=== PATIENT | male | born 1950 | race Caucasian/White ===

== ENCOUNTER → 2019-05-09 08:43 | Outpatient (CLI) | payer MEDICARE, OTHER, SELFPAY ==
[2019-05-09 08:51] LABS: Bacteria Urine None Seen; RBC Urine None Seen (0-5/HPF)
[2019-05-09 09:26] LABS: Add Manual Diff / Slide Review NO; Basophils Absolute Auto 100 /uL (0-100); Basophils Percent Auto 1.1 % (0-2); Eosinophils Absolute Auto 200 /uL (0-450); Eosinophils Percent Auto 2.9 % (2-4); Hematocrit 49.6 % (41-53); Hemoglobin 16.9 g/dL (13.5-17.5); Lymphocytes Absolute Auto 1500 /uL (1100-4500); Lymphocytes Percent Auto 27.4 % (25-40); Mean Corpuscular Hemoglobin 32.2 PG (26-34); Mean Corpuscular Volume 94.7 fL (80-100); Monocytes Absolute Auto 700 /uL (0-900); Monocytes Percent Auto 12.9 % (3-14); Neutrophils Absolute Auto 3100 /uL (1500-7000); Neutrophils Percent Auto 55.7 % (50-75); Platelet Count 252 X10^3/uL (150-400); Red Blood Cell Count 5.24 X10^6/uL (4.5-5.9); Red Cell Distribution Width 12.9 % (11.6-14.8); White Blood Cell Count 5.5 X10^3/uL (4.5-11.0)
[2019-05-09 10:05] LABS: Alanine Aminotransferase 8 IU/L (21-72); Albumin Globulin Ratio 1.3 (1.0-2.8); Alkaline Phosphatase 90 U/L (38-126); Aspartate Aminotransferase 21 IU/L (17-59); BUN Creatinine Ratio 21.1 (6-22); Bilirubin Total 0.5 mg/dL (0.2-1.3); Blood Urea Nitrogen 19 mg/dL (9-20); Calcium 9.2 mg/dL (8.4-10.2); Carbon Dioxide 28 mmol/L (22-32); Chloride 104 mmol/L (98-107); Cholesterol 209 mg/dL (140-199); Estimated Glomerular Filt Rate > 60.0 mL/min (>60); Globulin 3.2 g/dL (1.7-4.1); Glucose 109 mg/dL (80-110); HDL Cholesterol 52 mg/dL (40-60); HEMOLYSIS < 15 (0-50); LDL Cholesterol Calculated 139 mg/dL (<100); Potassium 4.9 mmol/L (3.4-5.1); Sodium 139 mmol/L (137-145); Total Protein 7.2 g/dL (6.3-8.2); Triglycerides 91 mg/dL (35-150)
[2019-05-09 10:25] LABS: Prostate Specific Antigen Scrn 0.789 ng/mL (0.1-4.0)
[2019-05-09 10:44] LABS: TSH w/ Reflex to FT4 4.06 uIU/mL (0.47-4.68)
[2019-05-09 11:04] LABS: Appearance Urine UA CLEAR; Bilirubin Urine UA NEGATIVE (NEGATIVE); Color Urine UA YELLOW; Glucose Urine UA NEGATIVE (Negative); Ketones Urine UA NEGATIVE (NEGATIVE); Leukocyte Esterase Urine UA NEGATIVE (NEGATIVE); Nitrite Urine UA NEGATIVE (Negative); Occult Blood Urine UA NEGATIVE (Negative); Protein Urine UA NEGATIVE (Negative); Specific Gravity Urine UA 1.025 (1.000-1.035); Urobilinogen Urine UA 0.2 E.U./dL (0.2)
[2019-05-09 11:15] LABS: Culture Indicated Urine Cult Not Indicated; Mucus Urine 1+ (Negative); WBC Urine 0-1/HPF (0-5/HPF)
[2019-05-09 12:21] LABS: Creatinine Urine Random 136.8 mg/dL
[2019-05-09 12:26] LABS: Microalbumi Creatinin Ratio Ur 4.3 ug/mg CR (<30); Microalbumin Urine Random < 0.6 mg/dL (0-1.6)
== END ==
PROVIDERS: PCP Nurse Practitioner; Visit Provider Nurse Practitioner
DX: Z00.00 Encounter for general adult medical examination without abnormal findings (principal); I10 Essential (primary) hypertension; N50.812 Left testicular pain; Z12.5 Encounter for screening for malignant neoplasm of prostate
CPT/HCPCS: 36415; 80053; 80061; 81001; 82043; 82570; 84443; 85025; G0103

== ENCOUNTER → 2019-06-03 09:39 | Outpatient (CLI) | payer MEDICARE, OTHER, SELFPAY ==
--- NOTE | 2019-06-03 09:42 | DI.RAD.S_ITS ---
PROCEDURE: XR ELBOW LT MIN 3V INDICATIONS: l elbow pain after fall TECHNIQUE: 3 views of the elbow were acquired. COMPARISON: None. FINDINGS: Bones: There is a mildly displaced fracture involving the posterior olecranon of the proximal ulna with extension to the humeroulnar joint. There is also a cortical irregularity/disruption involving the medial aspect of the left radial head, possibly representing an impaction fracture. There is associated soft tissue swelling of the left elbow and anterior joint effusion. Small ossification adjacent to the lateral epicondyle suggesting sequela of chronic epicondylitis. Soft tissues: There is a elbow joint effusion. No suspicious soft tissue calcifications. IMPRESSION: 1. Mildly displaced, comminuted fracture of the posterior olecranon with extension into the humeroulnar joint. 2. Possible nondisplaced radial head fracture. 3. Anterior joint effusion. 4. Findings suggestive chronic lateral epicondylitis. Acute findings were discussed personally with Dr. Barraza at 1048 hrs. Dictated by: Ian Angelo M.D. on 06/03/2019 at 10:48 Approved by: Ian Angelo M.D. on 06/03/2019 at 10:53
== END ==
PROVIDERS: PCP Nurse Practitioner; Visit Provider Hospitalist
DX: M25.522 Pain in left elbow (principal); S52.022A Displaced fracture of olecranon process without intraarticular extension of left ulna, initial encounter for closed fracture; M25.422 Effusion, left elbow; W19.XXXA Unspecified fall, initial encounter
CPT/HCPCS: 73080

== ENCOUNTER → 2020-05-14 09:08 | Outpatient (CLI) | payer MEDICARE, OTHER, SELFPAY ==
--- NOTE | 2020-05-14 09:08 | DI.US.S_ITS ---
PROCEDURE: US ABDOMEN COMPLETE INDICATIONS: ABD PAIN TECHNIQUE: Real-time scanning was performed of the abdominal and retroperitoneal organs, with image documentation. COMPARISON: None. FINDINGS: Liver: Liver is normal in size and homogeneous in echotexture. Gallbladder: The gallbladder wall is normal in thickness, and there is a slight amount of cholesterol deposition within the anterior gallbladder wall. No calculus is found in the gallbladder wall measures 2 mm. Biliary ducts: Intrahepatic bile ducts are non-dilated. Extrahepatic bile duct caliber measures 8 mm. Normal is 6-7 mm or less in diameter, or 10 mm or less post-cholecystectomy. Pancreas: Visualized portions of the pancreas are sonographically normal. Spleen: Spleen is normal in size and homogeneous in echotexture. Kidneys: Kidneys are normal in size and echotexture. Right kidney measures 10.9 cm long; left kidney measures 11.2 cm long. No hydronephrosis or nephrolithiasis. No solid masses. There is a lower pole left renal cortical cyst measuring up to 2 cm in maximal thickening. Aorta: Visualized aorta is normal in caliber at less than 3 cm. Iliacs: Proximal common iliac arteries are normal in caliber at less than 2.5 cm. IVC: Intrahepatic inferior vena cava is patent. Miscellaneous: No free abdominal fluid. IMPRESSION: A definite source of pain is not identified but the common duct is seen to be just above the upper limits of normal at 8 mm in a patient with gallbladder in place. No gallbladder calculus is found. Please correlate clinically to determine whether further assessment of the common duct may be warranted utilizing MR cholangiogram. Dictated by: Jeremy Geiger M.D. on 05/14/2020 at 10:35 Approved by: Jeremy Geiger M.D. on 05/14/2020 at 10:41
== END ==
PROVIDERS: PCP Nurse Practitioner; Referring Provider Nurse Practitioner; Visit Provider Nurse Practitioner
DX: R10.9 Unspecified abdominal pain (principal); R10.819 Abdominal tenderness, unspecified site
CPT/HCPCS: 76700

== ENCOUNTER → 2020-10-24 11:59 | Outpatient (CLI) | payer MEDICARE, OTHER, SELFPAY ==
[2020-10-24 14:19] LABS: Add Manual Diff / Slide Review NO; Basophils Absolute Auto 0 /uL (0-100); Basophils Percent Auto 0.7 % (0-2); Eosinophils Absolute Auto 100 /uL (0-450); Eosinophils Percent Auto 1.8 % (2-4); Hematocrit 50.2 % (41-53); Hemoglobin 16.4 g/dL (13.5-17.5); Lymphocytes Absolute Auto 1500 /uL (1100-4500); Lymphocytes Percent Auto 32.1 % (25-40); Mean Corpuscular HGB Conc 32.7 % (30-36); Mean Corpuscular Hemoglobin 31.8 PG (26-34); Mean Corpuscular Volume 97.1 fL (80-100); Monocytes Absolute Auto 400 /uL (0-900); Monocytes Percent Auto 7.7 % (3-14); Neutrophils Absolute Auto 2700 /uL (1500-7000); Neutrophils Percent Auto 57.7 % (50-75); Platelet Count 226 X10^3/uL (150-400); Red Blood Cell Count 5.17 X10^6/uL (4.5-5.9); Red Cell Distribution Width 13.8 % (11.6-14.8); White Blood Cell Count 4.6 X10^3/uL (4.5-11.0)
[2020-10-24 14:33] LABS: Alanine Aminotransferase 16 IU/L (<50); Albumin 4.3 g/dL (3.5-5.0); Albumin Globulin Ratio 1.3 (1.0-2.8); Alkaline Phosphatase 84 U/L (38-126); Aspartate Aminotransferase 28 IU/L (17-59); BUN Creatinine Ratio 22.4 (6-22); Bilirubin Total 0.7 mg/dL (0.2-1.3); Blood Urea Nitrogen 17 mg/dL (9-20); Calcium 9.2 mg/dL (8.4-10.2); Carbon Dioxide 30 mmol/L (22-32); Chloride 104 mmol/L (98-107); Cholesterol 214 mg/dL (140-199); Estimated Glomerular Filt Rate > 60.0 mL/min (>60); Globulin 3.2 g/dL (1.7-4.1); Glucose 98 mg/dL (80-110); HDL Cholesterol 64 mg/dL (40-60); HEMOLYSIS < 15 (0-50); LDL Cholesterol Calculated 129 mg/dL (<100); Potassium 4.5 mmol/L (3.4-5.1); Sodium 138 mmol/L (137-145); Total Protein 7.5 g/dL (6.3-8.2); Triglycerides 105 mg/dL (35-150)
[2020-10-24 14:51] LABS: Free T4, Direct Thyroxine 0.86 ng/dL (0.78-2.19)
[2020-10-24 15:04] LABS: Prostate Specific Antigen 0.513 ng/mL (0.10-4.00)
[2020-10-24 15:05] LABS: Thyroid Stimulating Hormone 2.99 uIU/mL (0.47-4.68)
[2020-10-24 17:39] LABS: Creatinine Urine Random 125.1 mg/dL
[2020-10-24 17:45] LABS: Microalbumin Urine Random < 0.6 mg/dL (0-1.6)
== END ==
PROVIDERS: PCP Nurse Practitioner; Referring Provider Nurse Practitioner; Visit Provider Nurse Practitioner
DX: E78.5 Hyperlipidemia, unspecified (principal); Z71.6 Tobacco abuse counseling; F32.9 Major depressive disorder, single episode, unspecified; F17.200 Nicotine dependence, unspecified, uncomplicated; G47.00 Insomnia, unspecified; I10 Essential (primary) hypertension; R53.83 Other fatigue; Z79.899 Other long term (current) drug therapy; Z12.5 Encounter for screening for malignant neoplasm of prostate
CPT/HCPCS: 36415; 80053; 80061; 82043; 82570; 84153; 84439; 84443; 85025; G0103

== ENCOUNTER 2021-02-25 14:44 | Emergency (ER) | payer MEDICARE, OTHER, SELFPAY ==
[2021-02-25 14:53] VITALS: BP 199/95; PULSE 65; RESP 20; TEMP 37.2; O2SAT 100
[2021-02-25 15:26] LABS: Prothrombin Time 11.7 SECONDS (10.1-12.7)
[2021-02-25 15:29] LABS: PTT Partial Thromboplastin Tim 36 SECONDS (26.4-36.2)
[2021-02-25 15:30] LABS: Add Manual Diff / Slide Review NO; Basophils Absolute Auto 0 /uL (0-100); Basophils Percent Auto 0.9 % (0-2); Eosinophils Absolute Auto 200 /uL (0-450); Eosinophils Percent Auto 3.6 % (2-4); Hematocrit 44.9 % (41-53); Hemoglobin 15.3 g/dL (13.5-17.5); Lymphocytes Absolute Auto 1400 /uL (1100-4500); Lymphocytes Percent Auto 27.5 % (25-40); Mean Corpuscular HGB Conc 34.1 % (30-36); Mean Corpuscular Hemoglobin 32.8 PG (26-34); Mean Corpuscular Volume 96.3 fL (80-100); Monocytes Absolute Auto 500 /uL (0-900); Monocytes Percent Auto 10.6 % (3-14); Neutrophils Absolute Auto 2900 /uL (1500-7000); Neutrophils Percent Auto 57.4 % (50-75); Platelet Count 202 X10^3/uL (150-400); Red Blood Cell Count 4.66 X10^6/uL (4.5-5.9); Red Cell Distribution Width 13.2 % (11.6-14.8); White Blood Cell Count 5.1 X10^3/uL (4.5-11.0)
[2021-02-25 15:31] LABS: Alanine Aminotransferase 12 IU/L (<50); Albumin 3.9 g/dL (3.5-5.0); Albumin Globulin Ratio 1.2 (1.0-2.8); Alkaline Phosphatase 98 U/L (38-126); Aspartate Aminotransferase 23 IU/L (17-59); BUN Creatinine Ratio 22.8 (6-22); Bilirubin Total 0.6 mg/dL (0.2-1.3); Blood Urea Nitrogen 18 mg/dL (9-20); Calcium 8.5 mg/dL (8.4-10.2); Carbon Dioxide 29 mmol/L (22-32); Chloride 103 mmol/L (98-107); Estimated Glomerular Filt Rate > 60.0 mL/min (>60); Globulin 3.3 g/dL (1.7-4.1); Glucose 124 mg/dL (80-110); HEMOLYSIS < 15 (0-50); Lipase 145 U/L (23-300); Potassium 4.3 mmol/L (3.4-5.1); Sodium 138 mmol/L (137-145); Total Protein 7.2 g/dL (6.3-8.2)
== END 2021-02-25 16:48 | disposition left against medical advice (07) ==
PROVIDERS: Emergency Provider Emergency Medicine; PCP Nurse Practitioner
DX: R10.30 Lower abdominal pain, unspecified (principal)
CPT/HCPCS: 80053; 83690; 85025; 85610; 85730; 99281

== ENCOUNTER → 2021-03-04 09:27 | Outpatient (CLI) | payer MEDICARE, OTHER, SELFPAY ==
--- NOTE | 2021-03-04 09:28 | DI.US.S_ITS ---
PROCEDURE: US SCROTUM INDICATIONS: SCROTAL SWELLING; INGUINAL NODE ENLARGEMENT TECHNIQUE: Real-time scanning was performed of the scrotum and testicles, with image documentation. Color and pulse Doppler interrogation was performed of both testicles. COMPARISON: None. FINDINGS: Right: Testicle is normal in size at 4.2 x 1.8 x 2.2 cm, and homogenous in echotexture. Epididymis is normal in overall size and morphology. No hydrocele or varicoceles. Overlying scrotal skin is normal in thickness. Left: Testicle is normal in size at 3.9 x 2.9 x 2.6 cm, and homogeneous in echotexture. Epididymis is normal in overall size and morphology. Large amount of left-sided hydrocele is seen. No varicocele is noted. Thickened left scrotal wall measures up to 9 mm in thickness is seen. Doppler: Color and pulse Doppler demonstrate normal and symmetric arterial flow in both testicles. Examination of bilateral inguinal region shows 1 cm right inguinal fascial defect with a right inguinal herniation sac measures 3 x 0.8 x 1.7 cm contains bowel loops persisting with Valsalva. 1.9 cm right inguinal lymph node is seen. No gross abnormality is noted in left inguinal region. IMPRESSION: 1. Significant left-sided hydrocele with left scrotal wall thickening which may represent cellulitis. No evidence of testicular torsion or discrete testicular lesion. Normal appearing bilateral epididymis. 2. Right inguinal hernia as above. Mildly enlarged right inguinal lymph node. Dictated by: Neville Heath M.D. on 03/04/2021 at 10:36 Approved by: Neville Heath M.D. on 03/04/2021 at 10:55
== END ==
PROVIDERS: PCP Nurse Practitioner; Referring Provider Nurse Practitioner; Visit Provider Family Medicine
DX: R59.0 Localized enlarged lymph nodes (principal); N50.89 Other specified disorders of the male genital organs
CPT/HCPCS: 76870

== ENCOUNTER → 2021-06-10 09:00 | Outpatient (CLI) | payer MEDICARE, OTHER, SELFPAY ==
[2021-06-10 13:50] LABS: COVID19 -Nasal RAPID Negative (Negative)
== END ==
PROVIDERS: PCP Nurse Practitioner; Visit Provider Surgery
DX: Z01.812 Encounter for preprocedural laboratory examination (principal); Z20.822 Contact with and (suspected) exposure to COVID-19
CPT/HCPCS: 87635; C9803

== ENCOUNTER 2021-06-11 09:28 | Day surgery (SDC) | payer MEDICARE, OTHER, SELFPAY ==
[2021-06-07 07:51] VITALS: BMI 19.3
[2021-06-11] VITALS (8 sets, daily range): BP systolic 116–150; BP diastolic 57–81; PULSE 52–70; RESP 6–17; TEMP 36.2–37.3; O2SAT 95–100; BMI 19.3
[2021-06-11] MEDS: LACTATED RINGERS 1,000 ML 100 ML IV (09:49)
--- NOTE | 2021-06-11 10:07 | P.HP_ITS ---
History of Present Illness History of Present Illness Date Patient Seen: 06/11/21 Time Patient Seen: 10:07 Chief complaint: OPEN RIH REPAIR Narrative: 71-year-old man here for elective open right inguinal hernia repair. No interval changes in health. Please refer to the H& P from March 2021 for further detail. 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 Pain in both forearms (08/22/16) Pain of right heel (08/22/16) Sleep apnea (~2015) Traumatic arthropathy, left elbow Unilateral inguinal hernia without obstruction or gangrene (08/22/16) Surgical History History of surgery (2018) Family & Social History Family History Mother Lupus Fibromyalgia Sister Age: 75 Bladder cancer Father Cancer Sister History of heart disease Social History: household members spouse Tobacco & Substance use: Tobacco type cigarettes Smoking Status Current some day smoker Smoking packs per day 1 alcohol intake current alcohol intake frequency 0-2 drinks per day Substance Use Type does not use Meds Home Medications and Allergies Home Medications Medication Instructions Recorded Confirmed Type lisinopril 5 mg tablet 5 mg PO DAILY 04/26/21 06/11/21 History melatonin 10 mg tablet 10 mg PO BEDTIME PRN 04/26/21 06/11/21 History Allergies Allergy/AdvReac Type Severity Reaction Status Date / Time No Known Drug Allergies Allergy Verified 06/11/21 09:10 Review of Systems Review of Systems ROS: Yes All systems reviewed with the patient and are negative except as otherwise documented Exam Vital Signs (past 8 hours): - 06/11/21 09:40 Temperature 98.7 F Pulse Rate 70 Respiratory Rate 16 Blood Pressure 150/81 H Pulse Oximetry 100 Oxygen Delivery Method Room Air Narrative Exam Narrative: Constitutional-he is oriented to person, place and time. No apparent distress Cardiovascular- regular rate, no peripheral edema Pulmonary-unlabored respiratory effort, no audible wheezing Abdominal-soft, non-tender, non-distended Musculoskeletal-no cyanosis or clubbing Neurological-nonfocal, normal strength throughout, normal gait. Skin-warm and dry Assessment & Plan Assessment and plan (1) Right inguinal hernia: Status: Acute Assessment & Plan narrative: 71-year-old man here for an elective open right inguinal hernia repair. We again discussed the technical nature of the procedure. We discussed operative risks including bleeding, infection, damage to surrounding structures, chronic pain, recurrence. His questions have been answered and he is in agreement with this plan Time Spent With Patient Critical Care time: I spent a total of [] minutes of critical care time on this patient's care today; this time is exclusive of procedural time.
[2021-06-11] MEDS: CEFAZOLIN 1 GM VIAL 2 GM IV (10:26)
--- NOTE | 2021-06-11 10:28 | SUR.OPER ---
Supine on padded OR bed, head on pillow, arms secured on padded arm boards at <90 degrees abduction, legs uncrossed, safety belt at thigh, tape over blanket over lower legs.
[2021-06-11] MEDS: BUPIVACAINE 0.25% (PF) VIAL 30 ML INJ (10:34)
--- NOTE | 2021-06-11 10:54 | SUR.OPER ---
Patients glasses brought from Operating Room to PACU with patient.
--- NOTE | 2021-06-11 11:23 | PM.OP.1 ---
Operative Date/Time/Diagnoses Date of procedure: 06/11/21 Time of procedure: 11:23 Pre-op diagnosis: Right inguinal hernia Post-op diagnosis: same Procedure & Clinicians Procedure: Open right inguinal hernia repair with mesh Same procedure as scheduled: Yes Indications: reducible right inguinal hernia Surgeon: Xander Wade Anesthesia Type: General Operative Notes Findings: direct floor defect, small indirect defect. Specimen(s): none sent Estimated Blood Loss (mL): 10 Procedure in detail: The patient was placed supine on the table and bilateral lower extremity compression devices were applied. Anesthesia was induced they were intubated with an LMA and received 2g of Ancef. A time-out was performed. They were prepped and draped in sterile fashion. The right external inguinal ring and the anterior superior iliac crest were identified and marked. 1 finger breath above the inguinal ligament the skin was infiltrated with 0.25% bupivacaine. The skin incision was made here and the subcutaneous tissues were divided with electrocautery exposing the external oblique aponeurosis which was then opened along the direction of its fibers. Using blunt dissection the internal oblique aporneurosis was from the external oblique upper leaflet to identify the iliohypogastric nerve. Using a kittner the cord was carefully dissected away from the inguinal canal adjacent to the pubic tubercle. The cord including the vas deferens, testicular bloody supply, ilioguinal and genital nerve were encircled with a [place] drain. A moderate size direct floor defect was identified and it was reduced into the abdomen and the internal oblique aporneuorsis was approximated to the inguinal ligament with Ethibond suture to reapproximate the floor. The cremasteric fibers surrounding the cord were divided using electrocautery adjacent to the internal ring.. The vas deferens and the testicular vessels were preserved and protected. There was a small indirect hernia on the anterior medial aspect of the cord which was skeletonized away from the vas deferens and testicular blood supply. The indirect hernia was skeletonized back to the internal ring and reduced spontaneously into the abdomen. I selected a 7x 15 cm lightweight Pro Loop hernia mesh. The inferior medial aspect of the mesh was anchored to insertion of the rectus muscle to the pubic tubercle such that there was approximately 2 cm of tubercle overlap with Ethibond and then was run continuously along the inferior edge of the mesh to the shelving edge of the inguinal ligament. Interrupted 3 0 Vicryl suture was used to anchor the superior aspect of the mesh to the conjoined tendon in several places. The tails were then reapproximated loosely around the spermatic cord. The tails of the mesh were then tucked under the external oblique aponeurosis. The repair was checked for hemostasis. The wound was irrigated with sterile saline. The external oblique aponeurosis was reapproximated in a running fashion using 3 0 Vicryl. The subcutaneous tissues were reapproximated with 3 0 Vicryl skin closed with 4 0 Monocryl followed by the application of Dermabond. At the end of the operation I ensured that both testicles were within the scrotum. The sponge instrument count at the end operation was correct. The patient emerged from anesthesia was extubated and transferred to the postoperative care unit in stable condition. A total of 30 ml of of 0.25% bupivicaine was used to infiltrate the skin. Complications: none Post-operative Condition: stable Disposition: same day surgery
--- NOTE | 2021-06-11 11:26 | SUR.PHASEI ---
Received to PACU after general anesthesia. Oral airway in place. No further airway support required. Report from Dr Wahl and EDILBERTO Valle.
[2021-06-11] MEDS: OXYCODONE/ACETAMINOPHEN 5/325 TABLET 1 TAB PO (11:51)
== END 2021-06-11 12:20 | disposition home or self-care (01) ==
PROVIDERS: PCP Nurse Practitioner; Referring Provider Surgery; Visit Provider Surgery
PROC: (CPT 49505; principal; 2021-06-11 10:45)
DX: K40.90 Unilateral inguinal hernia, without obstruction or gangrene, not specified as recurrent (principal)
CPT/HCPCS: 49505; 82962; C1781; J0690; J1100; J1885; J2250; J2405; J2704; J3010

== ENCOUNTER → 2021-06-12 13:08 | Outpatient (CLI) | payer MEDICARE, OTHER, SELFPAY ==
--- NOTE | 2021-06-12 13:09 | DI.RAD.S_ITS ---
PROCEDURE: XR ELBOW LT MIN 3V INDICATIONS: rule out osteomyelitis TECHNIQUE: 3 views of the elbow were acquired. COMPARISON: [facility], CR, XR ELBOW 1 OR 2 VIEWS LEFT, 07/22/2019, 11:10. [facility], CR, XR ELBOW 1 OR 2 VIEWS LEFT, 08/19/2019, 9:29. [facility], CR, XR ELBOW LT MIN 3V, 06/03/2019, 9:40. FINDINGS: Bones: Plate and screw fixation of the proximal ulna. There is expected postoperative alignment. The hardware appears intact. Scattered degenerative subchondral sclerosis and spurring. No evidence of hardware loosening or infection. Soft tissues: No elbow joint effusion. No suspicious soft tissue calcifications. IMPRESSION: Expected postoperative alignment. 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 No focal osseous destruction to suggest advanced osteomyelitis. If there is persistent clinical concern, continued short interval radiographic followup or contrast enhanced MRI could be performed to assess for early infection. Dictated by: Wil Cortes M.D. on 06/12/2021 at 14:14 Approved by: Wil Cortes M.D. on 06/12/2021 at 14:16
== END ==
PROVIDERS: PCP Nurse Practitioner; Referring Provider Nurse Practitioner; Visit Provider Nurse Practitioner
DX: S51.002A Unspecified open wound of left elbow, initial encounter (principal); M19.122 Post-traumatic osteoarthritis, left elbow
CPT/HCPCS: 73080

== ENCOUNTER → 2021-07-22 11:26 | Outpatient (CLI) | payer MEDICARE, OTHER, SELFPAY ==
--- NOTE | 2021-07-22 11:27 | DI.US.S_ITS ---
PROCEDURE: US SCROTUM INDICATIONS: TESTICULAR PAIN AND SWELLING TECHNIQUE: Real-time scanning was performed of the scrotum and testicles, with image documentation. Color and pulse Doppler interrogation was performed of both testicles. COMPARISON: [facility], , US SCROTUM, 03/04/2021, 9:43. FINDINGS: Right: Testicle is normal in size at 4.1 x 2.8 x 1.5 cm, and homogenous in echotexture. Two hypoechoic lesions are seen within the testis, measuring up to 3.9 mm, which may reflect cysts. Epididymis is normal in overall size and morphology. No hydrocele or varicoceles. Overlying scrotal skin is normal in thickness. Left: Testicle is normal in size at 4.5 x 2.6 x 2.6 cm. Mildly heterogeneous echotexture with small area of tubular ectasia. A hypoechoic lesion is seen, measuring 11 x 8.7 x 3.9 cm, which may reflect cystic epididymitis versus a hydrocele. No varicoceles. Overlying scrotal skin is normal in thickness. Doppler: Color and pulse Doppler demonstrate normal and symmetric arterial flow in both testicles. IMPRESSION: Left scrotal cystic lesion as detailed above, which may reflect cystic epididymitis versus a hydrocele. Dictated by: Lewis Fernandez M.D. on 07/22/2021 at 13:05 Approved by: Lewis Fernandez M.D. on 07/22/2021 at 13:12
== END ==
PROVIDERS: PCP Nurse Practitioner; Referring Provider Nurse Practitioner; Visit Provider Nurse Practitioner
DX: N50.819 Testicular pain, unspecified (principal); N50.9 Disorder of male genital organs, unspecified
CPT/HCPCS: 76870

== ENCOUNTER → 2021-08-06 14:31 | Outpatient (CLI) | payer MEDICARE, OTHER, SELFPAY ==
[2021-08-06 15:26] LABS: COVID19 -Nasal RAPID Negative (Negative)
== END ==
PROVIDERS: PCP Nurse Practitioner; Referring Provider Specialist; Visit Provider Specialist
DX: Z20.822 Contact with and (suspected) exposure to COVID-19 (principal)
CPT/HCPCS: 87635; C9803

== ENCOUNTER 2021-08-09 09:30 | Day surgery (SDC) | payer MEDICARE, OTHER, SELFPAY ==
[2021-08-06 07:52] VITALS: BMI 19.6
[2021-08-09] VITALS (8 sets, daily range): BP systolic 141–159; BP diastolic 64–77; PULSE 51–58; RESP 12–16; TEMP 36.3–36.5; O2SAT 94–99
[2021-08-09] MEDS: LACTATED RINGERS 1,000 ML 42 ML IV (09:56)
--- NOTE | 2021-08-09 11:55 | PM.PREOP ---
Pre-operative Note Interval Note History & Physical reviewed/Exam performed by Physician: Yes Changes to H&P: No
[2021-08-09] MEDS: CEFAZOLIN 1 GM VIAL 2 GM IV (13:05)
[2021-08-09] MEDS: EPINEPHrine 1 MG/ML 0.15 MG INJ (13:15)
[2021-08-09] MEDS: BUPIVACAINE 0.5% (PF) VIAL 30 ML INJ (13:16)
--- NOTE | 2021-08-09 13:18 | SUR.OPER ---
Supine on padded OR bed, head on pillow, arms secured on padded arm boards at <90 degrees abduction, legs uncrossed, safety belt at thigh, tape over blanket over lower legs.
[2021-08-09] MEDS: BUPIVACAINE LIPOSOME 266 MG/20 ML VIAL INJ (13:31)
[2021-08-09] MEDS: NEOMYCIN/POLYMYXIN/BACITRA UD OINT 1 EACH TOP (13:46)
--- NOTE | 2021-08-09 14:10 | PM.OP.1 ---
Operative Date/Time/Diagnoses Date of procedure: 08/09/21 Time of procedure: 14:10 Pre-op diagnosis: Left hydrocele Post-op diagnosis: same Procedure & Clinicians Procedure: 1. Left hydrocelectomy Same procedure as scheduled: Yes Indications: 1. Left hydrocele. 2. Painful left scrotal contents. Surgeon: Jory Wallis Click Yes if Unassisted: Yes Anesthesia Type: General Operative Notes Findings: 1. Normal scrotal wall tissue planes. 2. There were 3 septations within the confines of the tunica vaginalis he fluid-filled. No evidence scrotal kd. There was of a relatively large testicular appendage which was amputated and discarded. Closure Type: primary Specimen(s): none sent Applied: other (Ten [place] Islander fenestrated drain.) Estimated Blood Loss (mL): 1 Blood products transfused: none Procedure in detail: The patient was positioned supine was administered general anesthesia. The lower abdomen, genitalia, and groin were then prepped and draped in sterile fashion. The skin of the midline scrotal raphae was then infiltrated with local anesthetic. The needle point cautery pen was then used to divide the anesthetized area the midline scrotal raphae Fe. Dissection was taken down using the cautery pen through the layers of this subcutaneous dartos fascia. Once the tunica vaginalis was encountered Allis clamps were applied to the tunica vaginalis edges at approximately the midpoint on each side. An appropriate plane was then developed between the tunica vaginalis and the dartos fascia. The entire contents of the left tunica vaginalis were then delivered from left hemiscrotum. The structure was then opened anteriorly and slightly turbid straw-colored fluid was drained. As mentioned above, the individual septations required into visualized and attentive care to separate excised where indicated. The tunic vaginalis was then reflected posteriorly and a comic book designer closure was conducted using a running 3-0 Monocryl utilizing a running horizontal mattress technique. The left testicle cord were then repositioned in the left hemiscrotum anatomically. It was secured to the inferior and posterior wall with some S single interrupted 3-0 Monocryl at each location. Next, the skin and subcutaneous dartos fascia were infiltrated with with Exparel anesthetic at the inferior lateral left hemiscrotum. A 10 [place] Islander, fenestrated drain was then passed from the and to without through this site with a stab trocar. The drain length was then trimmed appropriately at least deeply oblique angle and positioned appropriately within the left hemiscrotum. The drain was then secured at the level the skin with a 2-0 silk using a [place] sandal technique. Next, the subcutaneous dartos fashion skin were infiltrated with Exparel anesthetic in the midline. The dartos fascia was then reapproximated using a running vertical mattress of 2-0 Monocryl. The skin was then reapproximated using a running horizontal mattress of 4-0 Monocryl. The skin surface was then cleaned and dried. Bacitracin antibiotic ointment was applied incision line. Dry sterile fluffs were applied to the scrotum and then an athletic supporter was applied to the patient. The patient was then awakened, transferred to [facility], and transferred recovery in stable condition. Complications: none Post-operative Condition: stable Disposition: PACU Plan for aftercare: Discharge home
[2021-08-09] MEDS: OXYCODONE IR 5 MG TABLET PO (14:54)
[2021-08-09] MEDS: ACETAMINOPHEN 325 MG TABLET 975 MG PO (14:54)
--- NOTE | 2021-08-09 15:19 | SUR.PHASEII ---
discharge instructions given in detail. GLADYS drain instructions given as well as 3 containers for measuring. States understanding.
== END 2021-08-09 15:31 | disposition home or self-care (01) ==
PROVIDERS: PCP Nurse Practitioner; Referring Provider Specialist; Visit Provider Specialist
PROC: (CPT 55040; principal; 2021-08-09 11:00)
DX: N43.3 Hydrocele, unspecified (principal); F17.210 Nicotine dependence, cigarettes, uncomplicated
CPT/HCPCS: 55040; C9290; J0171; J0690; J1100; J2250; J2405; J2704; J3010

== ENCOUNTER → 2022-01-15 15:09 | Outpatient (CLI) | payer MEDICARE, OTHER, SELFPAY ==
[2022-01-15 16:38] LABS: Add Manual Diff / Slide Review NO; Basophils Absolute Auto 100 /uL (0-100); Basophils Percent Auto 0.9 % (0-2); Eosinophils Absolute Auto 100 /uL (0-450); Eosinophils Percent Auto 1.7 % (2-4); Hematocrit 40.5 % (41-53); Hemoglobin 14.1 g/dL (13.5-17.5); Lymphocytes Absolute Auto 1200 /uL (1100-4500); Lymphocytes Percent Auto 16.9 % (25-40); Mean Corpuscular HGB Conc 34.8 % (30-36); Mean Corpuscular Hemoglobin 32.6 PG (26-34); Mean Corpuscular Volume 93.9 fL (80-100); Monocytes Absolute Auto 800 /uL (0-900); Monocytes Percent Auto 11.8 % (3-14); Neutrophils Absolute Auto 4800 /uL (1500-7000); Neutrophils Percent Auto 68.7 % (50-75); Platelet Count 377 X10^3/uL (150-400); Red Blood Cell Count 4.31 X10^6/uL (4.5-5.9); Red Cell Distribution Width 13.1 % (11.6-14.8)
[2022-01-15 16:48] LABS: Alanine Aminotransferase 13 IU/L (<50); Albumin 3.9 g/dL (3.5-5.0); Albumin Globulin Ratio 1.1 (1.0-2.8); Alkaline Phosphatase 110 U/L (38-126); Aspartate Aminotransferase 27 IU/L (17-59); Bilirubin Total 0.5 mg/dL (0.2-1.3); Blood Urea Nitrogen 18 mg/dL (9-20); C-Reactive Protein Quant 7.3 mg/dL (<1.0); Calcium 8.5 mg/dL (8.4-10.2); Carbon Dioxide 29 mmol/L (22-32); Chloride 103 mmol/L (98-107); Estimated Glomerular Filt Rate > 60 mL/min (>60); Globulin 3.5 g/dL (1.7-4.1); Glucose 103 mg/dL (80-110); HEMOLYSIS < 15 (0-50); Potassium 4.8 mmol/L (3.4-5.1); Sodium 138 mmol/L (137-145); Total Protein 7.4 g/dL (6.3-8.2)
[2022-01-15 17:10] LABS: Erythrocyte Sedimentation Rate 28 MM/HR (0-15)
== END ==
PROVIDERS: PCP Nurse Practitioner; Referring Provider Nurse Practitioner; Visit Provider Nurse Practitioner
DX: R26.89 Other abnormalities of gait and mobility (principal); R53.82 Chronic fatigue, unspecified; R29.6 Repeated falls
CPT/HCPCS: 36415; 80053; 85025; 85651; 86140

== ENCOUNTER 2022-01-19 08:35 | Emergency (ER) | payer MEDICARE, OTHER, SELFPAY ==
[2022-01-19 08:46] VITALS: BP 223/108; PULSE 67; RESP 20; TEMP 36.1; O2SAT 97
--- NOTE | 2022-01-19 09:01 | PC.NURSE ---
Pt states last week he was using a saw and injured his bilat thumbs. Has developed cellulitis that has not improved with PO antibiotics and steroids.
--- NOTE | 2022-01-19 09:07 | ED.SKABFB ---
HPI - Skin/Abscess/Foreign Bdy General Chief complaint: Skin/Abscess/Foreign Body Stated complaint: Thinks cellulitis is traveling up arms Time Seen by Provider: 01/19/22 08:48 Source: patient Mode of arrival: Family Vehicle Limitations: no limitations History of Present Illness HPI narrative: 71-year-old gentleman with history of hypertension presents with bilateral hand pain swelling and erythema right greater than left. He states he has had gout in the past home but that typically only lasts a couple of days. He has been having increasing hand pain for at least 1-2 weeks. He was seen in the office on the started on clarithromycin for 14 days prednisone that was supposed to be for 5 days however he took 2 doses on 1 dose on Thursday and 1 dose on Thursday. He notes that the prednisone did seem to make a slight difference. He was given Toradol in the office and did not notice a dramatic affect. Labs done from that visit show a white blood cell count at 7, C reactive protein significantly elevated at 7.3 and the remainder of blood work unremarkable. He has not been having fevers or chills but does note significant increase in pain bilaterally both hands with no other joint involvement specifically no elbow, shoulder, hip, knee or ankle swelling pain or complaints. He has reported no palpitations, dyspnea no particularly dry eyes, no additional skin rashes. Related Data Home Medications Medication Instructions Recorded Confirmed melatonin 10 mg tablet 5 mg PO BEDTIME tab 07/24/21 01/15/22 Previous Rx's Medication Instructions Recorded lisinopril 5 mg tablet 5 mg PO DAILY #90 tab 06/13/21 meloxicam 15 mg tablet 15 mg PO DAILY #30 tab 11/07/21 ciclopirox 8 % topical solution 1 applic TOPICAL DAILY 28 Days 01/02/22 #6.6 ml clarithromycin 500 mg tablet 500 mg PO Q12H #28 tab 01/15/22 prednisone 50 mg tablet 50 mg PO DAILY #5 tab 01/15/22 oxycodone-acetaminophen 5 mg-325 1 tab PO Q6H PRN #20 tab 01/19/22 mg tablet prednisone 10 mg tablet 10 mg PO DAILY #33 tab 01/19/22 Allergies Allergy/AdvReac Type Severity Reaction Status Date / Time No Known Drug Allergies Allergy Verified 01/19/22 08:52 Review of Systems Review of Systems Narrative: Remainder of complete review of systems is otherwise unremarkable except for that included in the HPI. Patient History Medical History Anemia Atypical chest pain Depression (~2015) Encounter for tobacco use cessation counseling Epididymitis, left Fracture of left olecranon process Gout (~1979) Hyperlipidemia Left hydrocele Liver spots Low BMI Measles Mumps Other shelter (current) drug therapy Pain in both forearms (08/22/16) Pain of right heel (08/22/16) Poor appetite Sleep apnea (~2015) Traumatic arthropathy, left elbow Unilateral inguinal hernia without obstruction or gangrene (08/22/16) Surgical History H/O hernia repair (06/11/21) History of surgery (2018) Family History Mother Lupus Fibromyalgia Sister Age: 76 Bladder cancer Father Cancer Sister History of heart disease Social History marital status: household members: spouse Previous occupational history: retired leisure activities: exercise Smoking Status: Current some day smoker Tobacco: How many years used: 10 alcohol intake: current caffeine: Yes Type(s) of exercise: other frequency: daily Smoking Status: Current some day smoker alcohol intake frequency: 0-2 drinks per day Substance Use Type: does not use Exam Initial Vital Signs Initial Vital Signs: Vital Signs Temperature 97.0 F L 01/19/22 08:46 Pulse Rate 67 01/19/22 08:46 Respiratory Rate 20 01/19/22 08:46 Blood Pressure 223/108 H 01/19/22 08:46 Pulse Oximetry 97 01/19/22 08:46 General: Healthy appearing, in a moderate amount of pain from his hands but Able to give a complete and coherent history. HEENT: Moist mucous membranes, normal sclera with reactive pupils, Neck: No JVD, supple Respiratory: Lungs are clear to auscultation, no wheezing no rales no rhonchi. Full and symmetrical air movement Cardiac: Regular rate and rhythm no murmurs no bruits Abdomen: Soft, nontender, good bowel tones, no flank pain Skin: Warm and dry, no rashes aside from the erythematous hands. Neurologic: Grossly neurologically intact with no obvious asymmetries or abnormalities Extremities: No trauma, well perfused. Both hands are erythematous with MCP joint active synovitis bilaterally, significant pain and some swelling most notable to the right side 1st MCP. The joints are warm to the touch and hands are hyperemic to the level of the wrists without evidence of obvious infection site. He does have some skin cracks in both thumbs however neither appear to be infected Psych: Cooperative, appropriate insight and affect Course Course Course Narrative: 71-year-old gentleman with worsening bilateral hand pain recently treated with 3 days of prednisone, clarithromycin a shot of Toradol. Pain is worse now that the prednisone has been discontinued. He states that he has been diagnosed with gout previously. At this time none of the joint spaces are fluctuant enough to aspirate for fluid analysis. Using clinical diagnostic rule for gout: 2 Male sex (2 points) 2 ?Previous patient-reported arthritis flare (2 points) 0 ?Onset within one day (0.5 points) 1 ?Joint redness (1 point) 0 ?First metatarsal phalangeal joint involvement (2.5 points) 1.5 Hypertension or at least one cardiovascular disease (1.5 points) 0 ?Serum urate level greater than 5.88 mg/dL (3.5 points) His score is 6.5, placeing him in the category with an intermittent likliehood of gout Orders Ordered: ED Orders 01/19/22 08:50 CBC Auto Diff [Complete Blood Count AUTO DIFF] Stat CMP [Comprehensive Metabolic Panel] Stat Procalcitonin Stat Uric Acid Stat 01/19/22 10:24 XR hand LT 2V Stat XR hand RT 2V Stat Colchicine (Colchicine 0.6 Mg Tablet) 0.6 mg PO 1030 DANA Last Admin: 01/19/22 10:36 Dose: 0.6 mg Documented by: RSTONE Discontinued Medications Colchicine (Colchicine 0.6 Mg Tablet) 1.2 mg PO NOW ONE Stop: 01/19/22 09:35 Last Admin: 01/19/22 09:55 Dose: 1.2 mg Documented by: AUPDIKE Hydromorphone HCl (Hydromorphone 0.5 Mg Inj) 0.5 mg IV NOW ONE Stop: 01/19/22 10:24 Last Admin: 01/19/22 10:35 Dose: 0.5 mg Documented by: FRANCIS Hydromorphone HCl (Hydromorphone 0.5 Mg Inj) 0.5 mg IV NOW ONE Stop: 01/19/22 11:08 Last Admin: 01/19/22 11:22 Dose: 0.5 mg Documented by: ZEKE Methylprednisolone (Methylprednisolone 125 Mg/2 Ml Vial) 60 mg IV NOW ONE Stop: 01/19/22 09:35 Last Admin: 01/19/22 09:54 Dose: 60 mg Documented by: ZEKE Oxycodone/Acetaminophen (Oxycodone/Acetaminophen 5/325 Tablet) 1 tab PO NOW ONE Stop: 01/19/22 10:55 Last Admin: 01/19/22 10:58 Dose: 1 tab Documented by: ZEKE Vital Signs Vital signs: Vital Signs - 8 hr 01/19/22 08:46 01/19/22 10:01 Temperature 97.0 F L Pulse Rate 67 Respiratory Rate 20 Blood Pressure 223/108 H 196/95 H Pulse Oximetry 97 MDM - Skin/Abscess/Foreign Bdy Lab Data Result diagrams: 01/19/22 08:50 01/19/22 08:50 Labs: Lab Results 01/19/22 01/19/22 01/19/22 Range/Units 08:50 08:50 08:50 WBC 8.7 (4.5-11.0) X10^3/uL RBC 4.70 (4.5-5.9) X10^6/uL Hgb 15.0 (13.5-17.5) g/dL Hct 44.1 (41-53) % MCV 94.0 (80-100) fL MCH 31.9 (26-34) PG MCHC 33.9 (30-36) % RDW 13.2 (11.6-14.8) % Plt Count 389 (150-400) X10^3/uL Neut % (Auto) 66.3 (50-75) % Lymph % (Auto) 21.1 L (25-40) % [place] % (Auto) 10.5 (3-14) % Eos % (Auto) 1.0 L (2-4) % Baso % (Auto) 1.1 (0-2) % Neut # (Auto) 5700 (6155-2601) /uL Lymph # (Auto) 1800 (4434-3956) /uL [place] # (Auto) 900 (0-900) /uL Eos # (Auto) 100 (0-450) /uL Baso # (Auto) 100 (0-100) /uL Sodium 137 (137-145) mmol/L Potassium 4.7 (3.4-5.1) mmol/L Chloride 105 (98-107) mmol/L Carbon Dioxide 26 (22-32) mmol/L BUN 28 H (9-20) mg/dL Creatinine 0.77 (0.66-1.25) mg/dL Estimated GFR > 60 (>60) mL/min BUN/Creatinine Ratio 36.4 H (6-22) Glucose 91 (80-110) mg/dL Uric Acid 5.9 (3.5-8.5) mg/dL Calcium 8.5 (8.4-10.2) mg/dL Total Bilirubin 0.5 (0.2-1.3) mg/dL AST 33 (17-59) IU/L ALT 19 (<50) IU/L Alkaline Phosphatase 104 (38-126) U/L Total Protein 7.1 (6.3-8.2) g/dL Albumin 3.7 (3.5-5.0) g/dL Globulin 3.4 (1.7-4.1) g/dL Albumin/Globulin Ratio 1.1 (1.0-2.8) Procalcitonin 0.05 (<0.5) ng/mL Imaging Data XR hands: Radiologist's Impression: FINDINGS:? ? Bones:? No fractures or dislocations.? Carpal bones are normally aligned.? No suspicious bony lesions.? Advanced 1st carpometacarpal joint space narrowing with marginal osteophytes.? Triscaphe marginal osteophytes present as well. ? Soft tissues:? No suspicious soft tissue calcifications.? ? ? IMPRESSION:? ? Advanced 1st carpometacarpal osteoarthritis.? No fracture or foreign body ? ? ? Approved by: Evangelist Combs M.D. on 01/19/2022 at 9:47? FINDINGS:? ? Bones:? No fractures or dislocations.? Carpal bones are normally aligned.? No suspicious bony lesions.? Advanced 1st carpometacarpal joint space narrowing with marginal osteophytes.? First PIP joint is held in flexion. ? Soft tissues:? No suspicious soft tissue calcifications.? ? ? IMPRESSION:? Advanced 1st carpometacarpal joint osteoarthritis ? ? ? Approved by: Evangelist Combs M.D. on 01/19/2022 at 9:48? [facility] Narrative Medical decision making narrative: Suspected bilateral hand gout with significant flares causing his pain. He was given a prescription for prednisone sounds like he likely took 100 mg on the , 50 mg on the , the and now on the is worse which is consistent with a flare after the steroids were discontinued. There is no evidence of cellulitis or underlying infection on clinical exam or with low white blood cell count, and normal procalcitonin level. X-rays suggest osteoarthritis only. He has had minimal response to steroids, colchicine, IV Dilaudid. Hands are still swollen, hyperemic and tender. He is on meloxicam already. Will have him do a longer prednisone taper, please see discharge instructions below. Will also give him a brief course of Percocet to simply control pain and asked him to follow-up with his primary care physician next week. 12:20 re-evaluate prior to discharge. The erythema and fullness in both hands is significantly less. Simply keeping them elevated has been helpful. At this point his pain continues but is tolerable and he is safe for discharge home. Discharge Plan Departure Patient Disposition: Home Clinical Impression: Gout, Arthritis Instructions: Gout, DI for Osteoarthritis Activity Restrictions/Additional Instructions: Thank you for coming in today I am so sorry that you are suffering [place] At this time there is no evidence of bacterial infection or septic joints. This does look like it is an inflammatory arthritis with so much swelling around the joints themselves. I am concerned with gout as well. Continuing to use the meloxicam daily is going to be appropriate. I am also going to have you do a longer taper of steroid. prednisone 10mg pills 40mg x 3 days, 30mg x 3 days, 20-mg x 3 days, 10mg x3 days, 5mg x 6 days I am also going to give you a prescription for Percocet to help with severe pain. Percocet is a narcotic and will cause constipation. I would recommend a stool softener or MiraLax daily if you use the narcotic pain medication. Prescriptions have been electronically sent to [facility] Because this is not a bacterial infection, you can stop the clarithromycin, the antibiotic you recently started. Please follow-up with your primary care physician next week. Prescriptions: New prednisone 10 mg tablet 10 mg PO DAILY Qty: 33 0RF Rx Instructions: 40mg x 3 days,30mg x 3 days, 20mg x3days, 10mgx 3 days, 5mg x6 days oxycodone-acetaminophen 5-325 mg tablet 1 tab PO Q6H PRN (Reason: pain) Qty: 20 0RF No Action lisinopril 5 mg tablet 5 mg PO DAILY Qty: 90 3RF ciclopirox 8 % solution 1 applic topical DAILY 28 Days Qty: 6.6 1RF Rx Instructions: use daily for 7 days, wipe off with alcohol and start again clarithromycin 500 mg tablet 500 mg PO Q12H Qty: 28 0RF Rx Instructions: Take 1 tab every 12 hours x14 days prednisone 50 mg tablet 50 mg PO DAILY Qty: 5 0RF Rx Instructions: Take 50mg by mouth each morning x5 days meloxicam 15 mg tablet 15 mg PO DAILY Qty: 30 2RF Rx Instructions: Take 1 tab daily for pain melatonin 10 mg tablet 5 mg PO BEDTIME 0RF Referrals: Kerri Obrien ARNP [Primary Care Provider] -
[2022-01-19 09:31] LABS: Add Manual Diff / Slide Review NO; Basophils Absolute Auto 100 /uL (0-100); Basophils Percent Auto 1.1 % (0-2); Eosinophils Absolute Auto 100 /uL (0-450); Hematocrit 44.1 % (41-53); Lymphocytes Absolute Auto 1800 /uL (1100-4500); Lymphocytes Percent Auto 21.1 % (25-40); Mean Corpuscular HGB Conc 33.9 % (30-36); Mean Corpuscular Hemoglobin 31.9 PG (26-34); Monocytes Absolute Auto 900 /uL (0-900); Monocytes Percent Auto 10.5 % (3-14); Neutrophils Absolute Auto 5700 /uL (1500-7000); Neutrophils Percent Auto 66.3 % (50-75); Platelet Count 389 X10^3/uL (150-400); Red Cell Distribution Width 13.2 % (11.6-14.8); White Blood Cell Count 8.7 X10^3/uL (4.5-11.0)
[2022-01-19 09:38] LABS: Alanine Aminotransferase 19 IU/L (<50); Albumin 3.7 g/dL (3.5-5.0); Albumin Globulin Ratio 1.1 (1.0-2.8); Alkaline Phosphatase 104 U/L (38-126); Aspartate Aminotransferase 33 IU/L (17-59); BUN Creatinine Ratio 36.4 (6-22); Bilirubin Total 0.5 mg/dL (0.2-1.3); Blood Urea Nitrogen 28 mg/dL (9-20); Calcium 8.5 mg/dL (8.4-10.2); Carbon Dioxide 26 mmol/L (22-32); Chloride 105 mmol/L (98-107); Estimated Glomerular Filt Rate > 60 mL/min (>60); Globulin 3.4 g/dL (1.7-4.1); Glucose 91 mg/dL (80-110); HEMOLYSIS < 15 (0-50); Potassium 4.7 mmol/L (3.4-5.1); Sodium 137 mmol/L (137-145); Total Protein 7.1 g/dL (6.3-8.2); Uric Acid 5.9 mg/dL (3.5-8.5)
[2022-01-19 09:54] LABS: Procalcitonin 0.05 ng/mL (<0.5)
[2022-01-19] MEDS: methylPREDNISolone 125 MG/2 ML VIAL 60 MG IV (09:54)
[2022-01-19] MEDS: COLCHICINE 0.6 MG TABLET 1.2 MG PO (09:55)
[2022-01-19 10:01] VITALS: BP 196/95
--- NOTE | 2022-01-19 10:17 | PC.NURSE ---
Dr. Dao informed of pt's high pain level. She wishes to observe how the cholecine and steroids works first.
--- NOTE | 2022-01-19 10:24 | DI.RAD.S_ITS ---
PROCEDURE: XR HAND LT 2V INDICATIONS: pain and swelling TECHNIQUE: 3 views of the hand(s) acquired. COMPARISON: None. FINDINGS: Bones: No fractures or dislocations. Carpal bones are normally aligned. No suspicious bony lesions. Advanced 1st carpometacarpal joint space narrowing with marginal osteophytes. Triscaphe marginal osteophytes present as well. Soft tissues: No suspicious soft tissue calcifications. IMPRESSION: Advanced 1st carpometacarpal osteoarthritis. No fracture or foreign body Approved by: Evangelist Combs M.D. on 01/19/2022 at 9:47
--- NOTE | 2022-01-19 10:24 | DI.RAD.S_ITS ---
PROCEDURE: XR HAND RT 2V INDICATIONS: pain and swelling TECHNIQUE: 3 views of the hand(s) acquired. COMPARISON: None. FINDINGS: Bones: No fractures or dislocations. Carpal bones are normally aligned. No suspicious bony lesions. Advanced 1st carpometacarpal joint space narrowing with marginal osteophytes. First PIP joint is held in flexion. Soft tissues: No suspicious soft tissue calcifications. IMPRESSION: Advanced 1st carpometacarpal joint osteoarthritis Approved by: Evangelist Combs M.D. on 01/19/2022 at 9:48
[2022-01-19] MEDS: HYDROMORPHONE 0.5 MG INJ IV ×2 (10:35→11:22)
[2022-01-19] MEDS: COLCHICINE 0.6 MG TABLET PO (10:36)
[2022-01-19] MEDS: OXYCODONE/ACETAMINOPHEN 5/325 TABLET 1 TAB PO (10:58)
[2022-01-19 12:33] VITALS: BP 159/77; PULSE 71; RESP 20; TEMP 35.9; O2SAT 100
--- NOTE | 2022-01-19 12:57 | PC.NURSE ---
picked up patient
== END 2022-01-19 12:56 | disposition home or self-care (01) ==
PROVIDERS: Emergency Provider Emergency Medicine; PCP Nurse Practitioner
DX: M10.9 Gout, unspecified (principal); M18.0 Bilateral primary osteoarthritis of first carpometacarpal joints; F17.200 Nicotine dependence, unspecified, uncomplicated
CPT/HCPCS: 36415; 73120; 80053; 84145; 84550; 85025; 96374; 96375; 96376; 99284; J1170; J2930

== ENCOUNTER → 2022-02-03 14:15 | Outpatient (CLI) | payer MEDICARE, OTHER, SELFPAY ==
[2022-02-03 15:31] LABS: Uric Acid 5.2 mg/dL (3.5-8.5)
[2022-02-03 15:36] LABS: Rheumatoid Factor < 8.6 IU/mL (<12.0)
[2022-02-05 14:11] LABS: ANA Screen, IFA Negative (.); Antimyeloperoxidase AB <9.0 U/mL (0.0-9.0); Antiproteinase 3 AB <3.5 U/mL (0.0-3.5); Atypical P-ANCA Titer <1:20 titer (Neg:<1:20); C-ANCA Titer <1:20 titer (Neg:<1:20); P-ANCA Titer <1:20 titer (Neg:<1:20)
[2022-02-05 21:51] LABS: CCP Antibodies IgG/IgA 22 units (0-19)
== END ==
PROVIDERS: PCP Nurse Practitioner; Referring Provider Nurse Practitioner; Visit Provider Nurse Practitioner
DX: D89.89 Other specified disorders involving the immune mechanism, not elsewhere classified (principal); M79.641 Pain in right hand; M79.642 Pain in left hand; M79.89 Other specified soft tissue disorders; R53.83 Other fatigue; R63.0 Anorexia; M10.9 Gout, unspecified
CPT/HCPCS: 36415; 83520; 84550; 86038; 86200; 86256; 86430

== ENCOUNTER → 2022-02-06 08:37 | Outpatient (CLI) | payer MEDICARE, OTHER, SELFPAY ==
--- NOTE | 2022-02-06 08:38 | DI.CT.S_ITS ---
PROCEDURE: CT ANGIO HEAD INDICATIONS: recent falls, left leg weakness, TECHNIQUE: Precontrast 4.5 mm thick angled axial sections acquired from the foramen magnum to the vertex. After the administration of intravenous contrast, 1 mm thick sections acquired through the [place] of [place]. Postcontrast 4.5 mm thick sections then re-acquired from the foramen magnum to the vertex. 10 mm thick uyeqmrx-ajpaguahh-jjlizulner (MIP) reformats were acquired of the central intracranial vasculature. For radiation dose reduction, the following was used: automated exposure control, adjustment of mA and/or kV according to patient size. COMPARISON: None. FINDINGS: Image quality: Excellent. Anterior circulation: Intracranial internal carotid arteries are normal in flow. Atherosclerotic calcifications noted in the cavernous and clinoid segments of the internal carotid arteries bilaterally which causes mild stenosis of the vessels. The flow within the paired anterior cerebral arteries is normal and symmetric. The flow within the middle cerebral arteries is normal and symmetric. The anterior communicating artery is seen. No aneurysms are seen. Posterior circulation: Visualized portions of the vertebral arteries demonstrate normal caliber, and join to form a normal appearing basilar artery. Flow within the posterior cerebral arteries is normal and symmetric. No aneurysms are seen. Dural sinuses demonstrate normal postcontrast enhancement. CSF spaces: Ventricles are normal in size and shape. Basal cisterns are patent. No extra-axial fluid collections. Brain: No midline shift. No intracranial bleeds or masses. [place]-white matter interface appears intact. Skull and face: Calvarium and facial bones appear intact, without suspicious lesions. Sinuses: Visualized sinuses and mastoids are clear. IMPRESSION: 1. No acute intracranial disease process. 2. No large vessel occlusion, hemodynamically significant vascular stenosis, vascular dissection or aneurysm. Dictated by: Shiela Ma MD, PhD on 02/06/2022 at 10:53 Approved by: Shiela Ma MD, PhD on 02/06/2022 at 10:57
== END ==
PROVIDERS: PCP Nurse Practitioner; Referring Provider Nurse Practitioner; Visit Provider Nurse Practitioner
DX: R26.89 Other abnormalities of gait and mobility (principal); R29.6 Repeated falls
CPT/HCPCS: 70496

== ENCOUNTER → 2022-02-21 18:45 | Outpatient (CLI) | payer MEDICARE, OTHER, SELFPAY ==
--- NOTE | 2022-02-21 | DI.RAD.S_ITS ---
PROCEDURE: XR FOOT LT MIN 3V INDICATIONS: INFLAMATORY ARTHRITIS TECHNIQUE: 3 views of the foot were acquired. COMPARISON: None. FINDINGS: Bones: No fractures or dislocations. No suspicious bony lesions. Joint space narrowing and periarticular osteophyte formation at the 1st metatarsophalangeal joint. 1st metatarsus primus varus. Soft tissues: No tibiotalar joint effusion. Achilles tendon appears normal. IMPRESSION: 1. 1st metatarsophalangeal joint osteoarthritis. No evidence of erosive arthropathy. 2. No acute fracture. No osseous lesion. If symptoms and/or clinical suspicion for pathology persist, further assessment with repeat, or advanced imaging (e.g., CT, MRI, or bone scan) may be helpful for further assessment. Dictated by: Nghia Tena M.D. on 02/21/2022 at 19:10 Approved by: Nghia Tena M.D. on 02/21/2022 at 19:10
--- NOTE | 2022-02-21 | DI.RAD.S_ITS ---
PROCEDURE: XR FOOT RT MIN 3V INDICATIONS: INFLAMATORY ARTHRITIS TECHNIQUE: 3 views of the foot were acquired. COMPARISON: None. FINDINGS: Bones: No fractures or dislocations. No suspicious bony lesions. Moderate joint space narrowing and periarticular osteophyte formation at 1st metatarsophalangeal joint. Metatarsus primus varus is present. Subchondral within the 1st metatarsal head. Soft tissues: No tibiotalar joint effusion. Achilles tendon appears normal. IMPRESSION: 1. 1st metatarsophalangeal joint osteoarthritis. 2. No evidence of erosive arthropathy. 3. No acute fracture. No osseous lesion. If symptoms and/or clinical suspicion for pathology persist, further assessment with repeat, or advanced imaging (e.g., CT, MRI, or bone scan) may be helpful for further assessment. Dictated by: Nghia Tena M.D. on 02/21/2022 at 19:09 Approved by: Nghia Tena M.D. on 02/21/2022 at 19:09
== END ==
PROVIDERS: PCP Nurse Practitioner; Referring Provider Internal Medicine Rheumatology; Visit Provider Internal Medicine Rheumatology
DX: M06.4 Inflammatory polyarthropathy (principal); M19.072 Primary osteoarthritis, left ankle and foot; M19.071 Primary osteoarthritis, right ankle and foot
CPT/HCPCS: 73630

== ENCOUNTER → 2022-04-09 12:07 | Outpatient (CLI) | payer MEDICARE, OTHER, SELFPAY ==
--- NOTE | 2022-04-09 | DI.MRI.S_ITS ---
PROCEDURE: MR HAND LT WO/W CON INDICATIONS: Inflammatory polyarthropathy TECHNIQUE: Coronal and axial T1 spin echo and T2 fast spin echo with fat saturation. Post-contrast coronal and axial T1 spin echo with fat saturation images through the left hand. COMPARISON: [facility], CR, XR HAND LT 2V, 01/19/2022, 10:26. FINDINGS: Image quality: Images are degraded by extensive patient motion despite repeat sequences being acquired. Mildly inhomogeneous fat saturation is noted. Some diagnostic information is obtained Bones and cartilage: No acute trabecular bone injury or fracture. Severe degenerative changes are seen at the 1st carpometacarpal joint with joint space narrowing, subchondral edema, and remodeling of the articular surfaces. Degenerative changes also seen at the triscaphe joint and 1st metacarpophalangeal joint. Small foci of cortical irregularity are seen in the carpal bones of the capitate and trapezoid. No definite osseous erosion is seen. Mildly increased signal within the capitate, trapezoid, 2nd and 4th metacarpal bases, and questionably within the trapezium is nonspecific but could represent osteitis. Synovium: Moderate joint effusions are seen throughout the wrist with associated synovial hypertrophy. There is a small joint effusion at the 1st metacarpophalangeal joint. Soft tissues: Fluid is seen within the extensor carpi ulnaris tendon sheath, consistent with tenosynovitis. Trace tenosynovitis of the 4th and 5th flexor tendons is seen at the level of the metacarpal shafts. IMPRESSION: 1. Images are moderately degraded by patient motion. Diagnostic information is obtained. 2. Moderate joint effusions are seen throughout the wrist with synovitis. Mildly increased osseous signal within multiple carpal bones could represent mild osteitis. A few foci of cortical irregularity are nonspecific but could represent small chronic erosions. Findings are suspicious for an inflammatory arthritis such as rheumatoid arthritis. 3. Moderate extensor carpi ulnaris tenosynovitis. Trace tenosynovitis of the 4th and 5th flexor tendons. 4. Severe 1st carpometacarpal joint osteoarthrosis with subchondral edema and remodeling of the articular surfaces. Dictated by: Norberto Berrios M.D. on 04/09/2022 at 15:01 Approved by: Norberto Berrios M.D. on 04/09/2022 at 15:11
--- NOTE | 2022-04-09 | DI.MRI.S_ITS ---
PROCEDURE: MR HAND RT WO/W CON INDICATIONS: Inflammatory polyarthropathy TECHNIQUE: Coronal and axial T1 spin echo and T2 fast spin echo with fat saturation. Post-contrast coronal and axial T1 spin echo with fat saturation images through the right hand. COMPARISON: [facility], CR, XR HAND RT 2V, 01/19/2022, 10:26. FINDINGS: Image quality: Images are degraded by extensive patient motion despite repeat sequences being acquired. Some diagnostic information is obtained. Bones and cartilage: No acute trabecular bone injury or fracture. No deformity of the small finger is seen. There is inhomogeneous fat suppression within the fingers. The carpal bones are sclerotic from the field of view of the exam. Moderate to severe degenerative changes are seen at the 1st metacarpophalangeal joint with joint space narrowing and marginal osteophyte formation. Severe degenerative changes are partially imaged at the 1st carpometacarpal joint. No definite osseous erosion is seen, although evaluation is compromised by extensive patient motion. Increased T2-hyperintense signal and enhancement are seen within the medullary canal of the of the 1st proximal phalangeal shaft extending into the proximal phalangeal head, which is of uncertain etiology and is not well evaluated. Synovium: No large joint effusion or enhancing synovial hypertrophy is seen given limitations related to patient motion. Soft tissues: Increased signal intensity surrounding the intrinsic hand muscles at the dorsum of the hand, and along the flexor tendons may be related to inhomogeneous fat suppression versus diffuse mild tenosynovitis and or myositis. IMPRESSION: 1. Images are degraded by extensive patient motion despite repeat sequences being obtained. Some diagnostic information is obtained. 2. 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 3. Severe 1st carpometacarpal joint degenerative osteoarthrosis and moderate to severe 1st metacarpophalangeal osteoarthrosis. 4. No definite osseous erosion, osteitis, or significant synovitis is seen given limitations related to patient motion. 5. Increased signal intensity within the intrinsic hand musculature and surrounding the majority of the flexor and extensor tendons throughout the hand could be related to diffuse tenosynovitis and myositis versus artifactual related to inhomogeneous fat suppression. 6. Nonspecific T2-hyperintense signal and enhancement within the medullary cavity of the 1st proximal phalanx, which is of uncertain etiology. Differential considerations include a subchondral cyst, intraosseous ganglion, or bone infarct versus posttraumatic changes. Osseous erosion is felt to be unlikely given intact overlying cortex. Dictated by: Norberto Berrios M.D. on 04/09/2022 at 14:17 Approved by: Norberto Berrios M.D. on 04/09/2022 at 14:35
== END ==
PROVIDERS: PCP Nurse Practitioner; Referring Provider Internal Medicine Rheumatology; Visit Provider Internal Medicine Rheumatology
DX: M06.4 Inflammatory polyarthropathy (principal); M20.021 Boutonniere deformity of right finger(s); M19.042 Primary osteoarthritis, left hand; M19.041 Primary osteoarthritis, right hand; M65.842 Other synovitis and tenosynovitis, left hand
CPT/HCPCS: 73220; A9579

== ENCOUNTER → 2022-04-11 10:01 | Outpatient (CLI) | payer MEDICARE, OTHER, SELFPAY ==
--- NOTE | 2022-04-11 10:02 | DI.MRI.S_ITS ---
PROCEDURE: MR WRIST RT WO/W CON INDICATIONS: Inflammatory polyarthropathy TECHNIQUE: Noncontrast coronal proton density fast spin echo and T2 fast spin echo with fat saturation; coronal 3-D gradient echo, axial T1 spin echo and T2 fast spin echo with fat saturation, axial T1 spin echo with fat saturation, sagittal T1 spin echo through the wrist. Post-contrast axial, coronal, and sagittal T1 spin echo with fat saturation through the wrist. COMPARISON: [facility], CR, XR HAND RT 2V, 01/19/2022, 10:26. FINDINGS: Image quality: Excellent. Bones and cartilage: Small radiocarpal and midcarpal effusions. Moderate distal radioulnar joint effusion. Diffuse enhancing synovial hypertrophy is seen throughout the wrist. Focus cortical irregularity in the trapezoid could represent an osseous erosion. Small areas of osseous edema enhancement in the wrist could represent osteitis. Severe degenerative changes are seen at the 1st carpometacarpal joint with subchondral cystic changes, subchondral edema, remodeling the articular surfaces, and prominent osteophyte formation. Degenerative changes also seen at the 1st metacarpophalangeal joint. Carpal ligaments: The scapholunate and lunotriquetral ligaments appear intact. In the absence of intra-articular contrast, the extrinsic carpal ligaments are not well identified. On sagittal images, the pisohamate ligament appears intact. Triangular fibrocartilage complex: A full-thickness defect is seen in the central triangle fibrocartilage disc. Tendons and soft tissues: No enhancing soft tissue mass. Moderate tenosynovitis of the 2nd, 3rd, and 4th extensor compartments. Mild tenosynovitis of the remaining extensor compartments. Moderate flexor carpi radialis tenosynovitis. Mild hand sing tenosynovitis of the flexor tendons throughout the wrist and extending into the hand. The ulnar nerve appears normal within Guyon's canal. IMPRESSION: 1. Joint effusions and diffuse synovial hypertrophy are seen throughout the wrist with multifocal areas of osteitis and a possible osseous erosion. Findings are suspicious for an active inflammatory arthritis such as rheumatoid arthritis. Recommend correlation with clinical findings and serologies. 2. 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 3. Diffuse tenosynovitis throughout the extensor tendon compartments that is most prominent at the 2nd, 3rd, and 4th extensor compartments. There is also mild diffuse flexor tenosynovitis. 4. Full-thickness defect is seen within the triangular fibrocartilage disc. Dictated by: Norberto Berrios M.D. on 04/11/2022 at 12:17 Approved by: Norberto Berrios M.D. on 04/11/2022 at 12:31
--- NOTE | 2022-04-11 10:02 | DI.MRI.S_ITS ---
PROCEDURE: MR WRIST LT WO/W CON INDICATIONS: Inflammatory polyarthropathy TECHNIQUE: Noncontrast coronal proton density fast spin echo and T2 fast spin echo with fat saturation; coronal 3-D gradient echo, axial T1 spin echo and T2 fast spin echo with fat saturation, axial T1 spin echo with fat saturation, sagittal T1 spin echo through the wrist. Post-contrast axial, coronal, and sagittal T1 spin echo with fat saturation through the wrist. COMPARISON: [facility], CR, XR HAND LT 2V, 01/19/2022, 10:26. FINDINGS: Image quality: Excellent. Bones and cartilage: Moderate to large joint effusions are seen throughout the wrist with diffuse enhancing synovial hypertrophy. Severe degenerative changes are seen at the 1st carpometacarpal joint with subchondral edema, marginal osteophyte formation, and remodeling of the articular surfaces. A 1.3 x 0.7 x 1.0 cm osseous fragment is seen adjacent to the 1st metacarpal base. Moderate triscaphe osteoarthrosis. Areas of increased T2 signal intensity enhancement are seen within the ulnar styloid, distal radius, and throughout the carpal bones, most prominent in the capitate, trapezoid, and 2nd metacarpal base, which are suspicious for osteitis. Foci of cortical irregularity are seen in the trapezoid and capitate that may represent chronic erosions. Is 0.8 x 0.4 x 0.3 cm loose body is seen inferior to the pisiform. There is dorsal tilting of the lunate without significant proximal migration of the capitate. No widening of the scapholunate interval. Carpal ligaments: The scapholunate and lunotriquetral ligaments appear intact. On sagittal images, the pisohamate ligament appears intact. Triangular fibrocartilage complex: There is full-thickness perforation of the central triangle fibrocartilage disc. Mildly increased signal is seen at the ulnar styloid attachment. Tendons and soft tissues: No soft tissue mass is seen. There is moderate tenosynovitis of the extensor carpi ulnaris tendon. Mild de Quervain tenosynovitis of the extensor pollicis brevis and abductor pollicis longus tendons. Mild extensor pollicis longus tendinosis and tenosynovitis. A small amount of fluid is seen in the 4th extensor compartment tendon sheaths. Mild scarring is seen the superficial to the flexor retinaculum. Small amount of fluid is seen tracking along the flexor digitorum tendons proximal to the carpal tunnel that may indicate tenosynovitis. Mild flexor carpi radialis tenosynovitis. The ulnar nerve appears normal within Guyon's canal. IMPRESSION: 1. Moderate to large joint effusions throughout the wrist with enhancing synovial hypertrophy. Mild osteitis is seen throughout the wrist. Possible osseous erosions within the trapezoid and capitate. Findings are suspicious for an active inflammatory arthritis such as rheumatoid arthritis. Recommend correlation with clinical findings and serologies. 2. Severe degenerative changes at the 1st carpometacarpal joint with full-thickness joint space narrowing, subchondral cystic changes and edema, and remodeling of the articular surfaces. Moderate triscaphe osteoarthrosis. 3. Full-thickness perforation of the central triangle fibrocartilage disc. 4. Diffuse tenosynovitis of the extensor tendons throughout the wrist, most prominent at the extensor carpi ulnaris tendon. Mild de Quervain tenosynovitis. Mild tenosynovitis of the flexor carpi radialis tendon as well as the flexor digitorum tendons proximal to the carpal tunnel. Dictated by: Norberto Berrios M.D. on 04/11/2022 at 11:59 Approved by: Norberto Berrios M.D. on 04/11/2022 at 12:17
== END ==
PROVIDERS: PCP Nurse Practitioner; Referring Provider Internal Medicine Rheumatology; Visit Provider Internal Medicine Rheumatology
DX: M06.4 Inflammatory polyarthropathy (principal); M25.432 Effusion, left wrist; M25.431 Effusion, right wrist; M67.232 Synovial hypertrophy, not elsewhere classified, left forearm; M67.231 Synovial hypertrophy, not elsewhere classified, right forearm; M86.8X3 Other osteomyelitis, forearm; M65.832 Other synovitis and tenosynovitis, left forearm; M65.831 Other synovitis and tenosynovitis, right forearm; M19.032 Primary osteoarthritis, left wrist; M19.031 Primary osteoarthritis, right wrist
CPT/HCPCS: 73223; A9579

== ENCOUNTER → 2022-04-28 16:29 | Outpatient (CLI) | payer MEDICARE, OTHER, SELFPAY ==
[2022-04-28 17:45] LABS: Add Manual Diff / Slide Review NO; Basophils Absolute Auto 0 /uL (0-100); Basophils Percent Auto 0.7 % (0-2); Eosinophils Absolute Auto 100 /uL (0-450); Eosinophils Percent Auto 1.9 % (2-4); Hematocrit 42.1 % (41-53); Hemoglobin 14.6 g/dL (13.5-17.5); Lymphocytes Absolute Auto 1700 /uL (1100-4500); Lymphocytes Percent Auto 25.6 % (25-40); Mean Corpuscular HGB Conc 34.7 % (30-36); Mean Corpuscular Hemoglobin 32.1 PG (26-34); Mean Corpuscular Volume 92.4 fL (80-100); Monocytes Absolute Auto 700 /uL (0-900); Monocytes Percent Auto 10.1 % (3-14); Neutrophils Absolute Auto 4200 /uL (1500-7000); Neutrophils Percent Auto 61.7 % (50-75); Platelet Count 231 X10^3/uL (150-400); Red Blood Cell Count 4.56 X10^6/uL (4.5-5.9); White Blood Cell Count 6.7 X10^3/uL (4.5-11.0)
[2022-04-28 18:00] LABS: Free T3, Triiodothyronine Free 3.17 pg/mL (2.77-5.27); Free T4, Direct Thyroxine 1.02 ng/dL (0.78-2.19)
[2022-04-28 18:05] LABS: Alanine Aminotransferase 13 IU/L (<50); Albumin 3.8 g/dL (3.5-5.0); Albumin Globulin Ratio 1.3 (1.0-2.8); Alkaline Phosphatase 93 U/L (38-126); Aspartate Aminotransferase 27 IU/L (17-59); BUN Creatinine Ratio 20.5 (6-22); Bilirubin Total 0.7 mg/dL (0.2-1.3); Blood Urea Nitrogen 16 mg/dL (9-20); Calcium 8.5 mg/dL (8.4-10.2); Carbon Dioxide 29 mmol/L (22-32); Chloride 105 mmol/L (98-107); Estimated Glomerular Filt Rate > 60 mL/min (>60); Globulin 2.9 g/dL (1.7-4.1); Glucose 79 mg/dL (80-110); HEMOLYSIS < 15 (0-50); Potassium 4.3 mmol/L (3.4-5.1); Sodium 138 mmol/L (137-145); Total Protein 6.7 g/dL (6.3-8.2)
[2022-04-28 18:13] LABS: Thyroid Stimulating Hormone 3.47 uIU/mL (0.47-4.68)
[2022-04-28 18:34] LABS: Hep C Virus Ab w/Reflex Quant NEGATIVE s/c (NEGATIVE)
== END ==
PROVIDERS: PCP Nurse Practitioner; Referring Provider Nurse Practitioner; Visit Provider Nurse Practitioner
DX: F32.9 Major depressive disorder, single episode, unspecified (principal); F17.209 Nicotine dependence, unspecified, with unspecified nicotine-induced disorders; R53.82 Chronic fatigue, unspecified; R63.4 Abnormal weight loss; Z11.59 Encounter for screening for other viral diseases
CPT/HCPCS: 36415; 80053; 84439; 84443; 84481; 85025; 86803

== ENCOUNTER → 2022-05-02 10:46 | Outpatient (CLI) | payer MEDICARE, OTHER, SELFPAY ==
[2022-05-02 11:52] LABS: Erythrocyte Sedimentation Rate 4 MM/HR (0-15)
[2022-05-02 13:11] LABS: C-Reactive Protein Quant 1.9 mg/dL (<1.0); Uric Acid 5.6 mg/dL (3.5-8.5)
[2022-05-02 13:53] LABS: Hep C Virus Ab w/Reflex Quant NEGATIVE s/c (NEGATIVE)
[2022-05-05 10:40] LABS: Hepatitis B Virus HBV DNA not detected IU/mL (.)
== END ==
PROVIDERS: PCP Nurse Practitioner; Referring Provider Internal Medicine Rheumatology; Visit Provider Internal Medicine Rheumatology
DX: M06.09 Rheumatoid arthritis without rheumatoid factor, multiple sites (principal)
CPT/HCPCS: 36415; 84550; 85651; 86140; 86803

== ENCOUNTER → 2022-05-07 14:02 | Outpatient (CLI) | payer MEDICARE, OTHER, SELFPAY ==
--- NOTE | 2022-05-07 14:04 | DI.CT.S_ITS ---
PROCEDURE: CT CHEST ABD PEL W CON INDICATIONS: unexplained weight loss, tobacco smoker TECHNIQUE: After the administration of oral and intravenous contrast, axial sections acquired from the supraclavicular neck to the pubic symphysis. Coronal and sagittal reformats were performed. For radiation dose reduction, the following was used: automated exposure control, adjustment of mA and/or kV according to patient size. COMPARISON:None. FINDINGS: Image quality: Excellent. CHEST: Lower Neck: No enlarged lymph nodes. Thyroid: There is a 1.3 x 2.4 cm left thyroid nodule Axillae: No enlarged lymph nodes. Chest Wall: Unremarkable. Lungs and Airways: Moderate emphysema. No consolidation or suspicious nodules. Pleura: No pneumothorax or pleural effusions. Heart: Heart size is normal. No pericardial effusion. There is mild coronary artery calcification. Thoracic Vessels: The aorta and pulmonary arteries demonstrate normal size. Mediastinum and Anna: No enlarged lymph nodes. Esophagus: No wall thickening. No hiatal hernia. ABDOMEN: Liver: Unremarkable. Gallbladder: Unremarkable. Biliary ducts: Unremarkable. Pancreas: Unremarkable. Spleen: Unremarkable. Adrenal Glands: Unremarkable. Kidneys and Ureters: Normal in size and enhancement. There is a 1.7 cm simple cyst in the inferior pole of the right kidney. Stomach and Bowel: Stomach, small bowel loops, and colon are normal in caliber. Diverticulosis. No acute diverticulitis. Question mild sigmoid colon thickening. There is a large amount of stool in colon. Peritoneum: No abnormal intraperitoneal fluid. No free air. Ventral Wall: No hernia. Abdominal Nodes: There is a 1.7 cm soft tissue nodule posterior to the splenic vein, probably an enlarged retroperitoneal lymph node. Vessels: Moderate atherosclerosis. 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 PELVIS: Pelvic Organs: Unremarkable. Bladder: Unremarkable. Pelvic Nodes: No enlarged lymph nodes. Miscellaneous: No inguinal hernias are seen. There is small scrotal hydrocele. Bones: Unremarkable. IMPRESSION: 1. Question mild sigmoid colon thickening. 2. A 1.7 cm retroperitoneal lymph node behind splenic vein. Etiology indeterminate. 3. Diverticulosis without acute diverticulitis. 4. Moderate amount of stool in colon. 5. Duplicated infrarenal IVC. 6. Moderate emphysema. 7. A 1.3 x 2.4 cm left thyroid nodule. Recommend thyroid ultrasound for follow-up evaluation. Dictated by: Jeremy Oslen M.D. on 05/07/2022 at 17:06 Approved by: Jeremy Olsen M.D. on 05/07/2022 at 21:41
== END ==
PROVIDERS: PCP Nurse Practitioner; Referring Provider Nurse Practitioner; Visit Provider Nurse Practitioner
DX: E04.1 Nontoxic single thyroid nodule (principal); R63.4 Abnormal weight loss; R53.82 Chronic fatigue, unspecified; N28.1 Cyst of kidney, acquired; J43.9 Emphysema, unspecified; R59.0 Localized enlarged lymph nodes; K57.90 Diverticulosis of intestine, part unspecified, without perforation or abscess without bleeding; F17.209 Nicotine dependence, unspecified, with unspecified nicotine-induced disorders
CPT/HCPCS: 71260; 74177; Q9967

== ENCOUNTER → 2022-05-20 16:14 | Outpatient (CLI) | payer MEDICARE, OTHER, SELFPAY ==
--- NOTE | 2022-05-20 16:16 | DI.US.S_ITS ---
PROCEDURE: US THYROID INDICATIONS: A 1.3 x 2.4 cm left thyroid nodule per CT imaging TECHNIQUE: Real-time scanning was performed of the thyroid gland, with image documentation. COMPARISON: [facility], CT, CT CHEST ABD PEL W CON, 05/07/2022, 15:33. FINDINGS: The right thyroid measures 4.3 x 1.4 x 1.7 centimeters. The left thyroid is enlarged, measuring 7.9 x 2.2 x 3.2 centimeters. The isthmus measures 0.5 centimeters. The left lobe is enlarged and heterogeneous with hyperemia. There is no discrete nodule. The isthmus appears similar. The right thyroid parenchyma is more homogeneous and not as hypervascular. IMPRESSION: CT and ultrasound findings suggestive of thyroiditis, mostly affecting the left lobe and isthmus. No discrete nodule is identified. Correlate with lab findings and follow-up imaging could be obtained with ultrasound and/or nuclear medicine studies if clinically desired. Dictated by: Michael Velázquez M.D. on 05/21/2022 at 9:03 Approved by: Michael Velázquez M.D. on 05/21/2022 at 9:06
== END ==
PROVIDERS: PCP Nurse Practitioner; Referring Provider Nurse Practitioner; Visit Provider Nurse Practitioner
DX: E04.1 Nontoxic single thyroid nodule (principal)
CPT/HCPCS: 76536

== ENCOUNTER → 2022-06-05 09:41 | Outpatient (CLI) | payer MEDICARE, OTHER, SELFPAY ==
--- NOTE | 2022-06-05 09:42 | DI.NM.S_ITS ---
PROCEDURE: NM UPTAKE AND SCAN RADIOPHARMACEUTICAL: 362 ?Ci I-123 sodium iodide by mouth. INDICATIONS: eval thyroid nodule TECHNIQUE: I-123 sodium iodide was administered orally. Anterior neck images were obtained, and iodine uptake by the thyroid gland calculated using short order fry cook's software. COMPARISON: Ultrasound 05/20/2022 FINDINGS: Morphology: The left lobe is larger than the right lobe. Uptake in the right lobe is slightly more intense. No discrete nodule. Uptake: 6 hour thyroid uptake is 11.2% ; normal ranges are from 6-18%. 24 hour thyroid uptake is 24.9% ; normal ranges are from 10-30%. IMPRESSION: As seen on ultrasound, the left lobe has less uptake and is enlarged compared to the right lobe. Thyroid uptake values are within normal limits. This could represent sequela of thyroiditis, correlate with laboratory values and trends. Dictated by: Michael Velázquez M.D. on 06/06/2022 at 11:24 Approved by: Michael Velázquez M.D. on 06/06/2022 at 11:29
== END ==
PROVIDERS: PCP Nurse Practitioner; Referring Provider Nurse Practitioner; Visit Provider Nurse Practitioner
DX: E04.1 Nontoxic single thyroid nodule (principal)
CPT/HCPCS: 78014; A9516

== ENCOUNTER → 2022-08-12 11:37 | Outpatient (CLI) | payer MEDICARE, OTHER, SELFPAY ==
[2022-08-12 12:20] LABS: Add Manual Diff / Slide Review NO; Basophils Absolute Auto 0 /uL (0-100); Basophils Percent Auto 0.8 % (0-2); Eosinophils Absolute Auto 100 /uL (0-450); Hematocrit 43.2 % (41-53); Hemoglobin 14.6 g/dL (13.5-17.5); Lymphocytes Absolute Auto 1100 /uL (1100-4500); Lymphocytes Percent Auto 19.1 % (25-40); Mean Corpuscular HGB Conc 33.8 % (30-36); Mean Corpuscular Hemoglobin 32.2 PG (26-34); Mean Corpuscular Volume 95.2 fL (80-100); Monocytes Absolute Auto 600 /uL (0-900); Monocytes Percent Auto 10.5 % (3-14); Neutrophils Absolute Auto 3800 /uL (1500-7000); Neutrophils Percent Auto 68.6 % (50-75); Platelet Count 269 X10^3/uL (150-400); Red Blood Cell Count 4.54 X10^6/uL (4.5-5.9); Red Cell Distribution Width 12.9 % (11.6-14.8); White Blood Cell Count 5.6 X10^3/uL (4.5-11.0)
[2022-08-12 13:00] LABS: Alanine Aminotransferase 15 IU/L (<50); Albumin 3.6 g/dL (3.5-5.0); Albumin Globulin Ratio 1.2 (1.0-2.8); Alkaline Phosphatase 115 U/L (38-126); Aspartate Aminotransferase 19 IU/L (17-59); BUN Creatinine Ratio 16.4 (6-22); Bilirubin Total 0.7 mg/dL (0.2-1.3); Blood Urea Nitrogen 12 mg/dL (9-20); Calcium 8.5 mg/dL (8.4-10.2); Carbon Dioxide 28 mmol/L (22-32); Chloride 99 mmol/L (98-107); Estimated Glomerular Filt Rate > 60 mL/min (>60); Glucose 111 mg/dL (80-110); HEMOLYSIS < 15 (0-50); Potassium 4.5 mmol/L (3.4-5.1); Sodium 135 mmol/L (137-145); Total Protein 6.6 g/dL (6.3-8.2)
[2022-08-12 13:01] LABS: Free T3, Triiodothyronine Free 2.95 pg/mL (2.77-5.27); Free T4, Direct Thyroxine 1.11 ng/dL (0.78-2.19)
[2022-08-12 13:14] LABS: Thyroid Stimulating Hormone 1.12 uIU/mL (0.47-4.68)
[2022-08-13 08:10] LABS: Thyroid Peroxidase Antibodies 9 IU/mL (0-34)
[2022-08-14 15:12] LABS: QuantiFERON Mitogen Value >10.00 IU/mL (.); QuantiFERON Nil Value 0.04 IU/mL (.); QuantiFERON TB Gold Plus Negative (Negative); QuantiFERON TB1 Ag Value 0.04 IU/mL (.); QuantiFERON TB2 Ag Value 0.03 IU/mL (.)
[2022-08-16 14:02] LABS: Testosterone % Fr + Wkly bound 8.6 % (9.0-46.0); Testosterone Fr+Wkly bound 21.1 ng/dL (40.0-250.0)
== END ==
PROVIDERS: PCP Nurse Practitioner; Referring Provider Nurse Practitioner; Visit Provider Nurse Practitioner
DX: E04.1 Nontoxic single thyroid nodule (principal); R53.82 Chronic fatigue, unspecified; R61 Generalized hyperhidrosis
CPT/HCPCS: 36415; 80053; 84403; 84439; 84443; 84481; 85025; 86376; 86480

== ENCOUNTER → 2022-09-16 11:32 | Outpatient (CLI) | payer MEDICARE, OTHER, SELFPAY ==
[2022-09-23 08:17] LABS: Percent Free Testosterone 2.45 % (1.50-4.20); Testosterone Free 16.44 ng/dL (5.00-21.00); Testosterone Total 670.9 ng/dL (264.0-916.0)
== END ==
PROVIDERS: PCP Nurse Practitioner; Referring Provider Nurse Practitioner; Visit Provider Nurse Practitioner
DX: E29.1 Testicular hypofunction (principal)
CPT/HCPCS: 36415; 84402; 84403

== ENCOUNTER → 2023-03-23 10:59 | Outpatient (CLI) | payer MEDICARE, OTHER, SELFPAY ==
[2023-03-23 12:58] LABS: Add Manual Diff / Slide Review NO; Basophils Absolute Auto 0 /uL (0-100); Basophils Percent Auto 0.6 % (0-2); Eosinophils Absolute Auto 100 /uL (0-450); Hematocrit 48.4 % (41-53); Hemoglobin 16.5 g/dL (13.5-17.5); Lymphocytes Absolute Auto 600 /uL (1100-4500); Lymphocytes Percent Auto 8.7 % (25-40); Mean Corpuscular Hemoglobin 32.9 PG (26-34); Mean Corpuscular Volume 96.6 fL (80-100); Monocytes Absolute Auto 400 /uL (0-900); Monocytes Percent Auto 5.4 % (3-14); Neutrophils Absolute Auto 6000 /uL (1500-7000); Neutrophils Percent Auto 84.3 % (50-75); Platelet Count 243 X10^3/uL (150-400); Red Blood Cell Count 5.01 X10^6/uL (4.5-5.9); Red Cell Distribution Width 13.9 % (11.6-14.8); White Blood Cell Count 7.1 X10^3/uL (4.5-11.0)
[2023-03-23 13:35] LABS: Free T3, Triiodothyronine Free 4.58 pg/mL (2.77-5.27); Free T4, Direct Thyroxine 0.93 ng/dL (0.78-2.19)
[2023-03-23 13:46] LABS: Prostate Specific Antigen Scrn 1.47 ng/mL (0.1-4.0)
[2023-03-23 13:48] LABS: Thyroid Stimulating Hormone 5.15 uIU/mL (0.47-4.68)
[2023-03-27 07:19] LABS: Testosterone % Fr + Wkly bound 23.3 % (9.0-46.0); Testosterone Fr+Wkly bound 224.5 ng/dL (40.0-250.0); Testosterone, Total 963.4 ng/dL (264.0-916.0)
== END ==
PROVIDERS: PCP Nurse Practitioner; Referring Provider Nurse Practitioner; Visit Provider Nurse Practitioner
DX: D64.9 Anemia, unspecified (principal); Z12.5 Encounter for screening for malignant neoplasm of prostate; E29.1 Testicular hypofunction; F32.9 Major depressive disorder, single episode, unspecified; G47.00 Insomnia, unspecified; R53.83 Other fatigue; Z79.899 Other long term (current) drug therapy; R53.82 Chronic fatigue, unspecified; R63.4 Abnormal weight loss
CPT/HCPCS: 36415; 84403; 84439; 84443; 84481; 85025; G0103

== ENCOUNTER → 2023-04-17 10:07 | Outpatient (CLI) | payer MEDICARE, OTHER, SELFPAY ==
--- NOTE | 2023-04-17 10:12 | DI.RAD.S_ITS ---
PROCEDURE: XR HAND RT 2V INDICATIONS: Rheumatoid arthritis without rheumatoid factor, multiple sit TECHNIQUE: 3 views of the hand(s) acquired. COMPARISON: [facility], CR, XR HAND LT 2V, 04/17/2023, 10:18. [facility], CR, XR WRIST RT 2V, 04/17/2023, 10:18. [facility], CR, XR HAND RT 2V, 01/19/2022, 10:26. FINDINGS: Bones: No fractures or dislocations. Carpal bones are normally aligned. No suspicious bony lesions. Severe arthritic changes at the 1st carpometacarpal joint and the 5th proximal interphalangeal joint. There is lateral subluxation of the 1st metacarpal at the 1st metacarpophalangeal joint. Gilford-neck deformity of the 5th finger. Soft tissues: No suspicious soft tissue calcifications. There is marked tissue swelling around the wrist. IMPRESSION: 1. Severe arthritic changes, stable since 01/19/2022. 2. Severe soft tissue swelling. Dictated by: Jeremy Olsen M.D. on 04/17/2023 at 13:10 Approved by: Jeremy Olsen M.D. on 04/17/2023 at 13:13
--- NOTE | 2023-04-17 10:12 | DI.RAD.S_ITS ---
PROCEDURE: XR HAND LT 2V INDICATIONS: Rheumatoid arthritis without rheumatoid factor, multiple sit TECHNIQUE: 2 views of the hand(s) acquired. COMPARISON: [facility], MR, MR WRIST LT WO/W CON, 04/11/2022, 10:16. [facility], CR, XR HAND 3+ VIEWS LEFT, 06/23/2019, 15:34. MR, MR HAND LT WO/W CON, 04/09/2022, 12:28. [facility], CR, XR HAND RT 2V, 04/17/2023, 10:18. [facility], CR, XR HAND LT 2V, 01/19/2022, 10:26. FINDINGS: Bones: No fractures or dislocations. Carpal bones are normally aligned. No suspicious bony lesions. Severe arthritic changes at the triscaphe joint and 1st carpometacarpal joint, moderate arthritic changes at the 1st metacarpophalangeal joint and multiple interphalangeal joints. There is radial subluxation of the 1st metacarpal at the 1st metacarpophalangeal joint. Bony erosions at the 1st carpometacarpal joint. Soft tissues: No suspicious soft tissue calcifications. IMPRESSION: Severe arthritic changes at the 1st carpometacarpal joint with associated bony erosion consistent with inflammatory arthritis. Dictated by: Jeremy Olsen M.D. on 04/17/2023 at 13:02 Approved by: Jeremy Olsen M.D. on 04/17/2023 at 13:10
--- NOTE | 2023-04-17 10:12 | DI.RAD.S_ITS ---
PROCEDURE: XR WRIST LT 2V INDICATIONS: Rheumatoid arthritis without rheumatoid factor, multiple sit TECHNIQUE: 2 views of the wrist were acquired. COMPARISON: [facility], CR, XR HAND LT 2V, 01/19/2022, 10:26. [facility], MR, MR WRIST LT WO/W CON, 04/11/2022, 10:16. [facility], CR, XR HAND LT 2V, 04/17/2023, 10:18. FINDINGS: Bones: No fractures or dislocations. No suspicious bony lesions. Severe arthritic changes at the 1st carpometacarpal joint and triscaphe joint. Bony erosion is present. Soft tissues: No suspicious soft tissue calcifications. There is a soft tissue calcification adjacent to the ulnar styloid. Soft tissue swelling. IMPRESSION: 1. Severe arthritic changes with bony erosion consistent with inflammatory arthritis. Dictated by: Jeremy Olsen M.D. on 04/17/2023 at 13:13 Approved by: Jeremy Olsen M.D. on 04/17/2023 at 13:19
--- NOTE | 2023-04-17 10:13 | DI.RAD.S_ITS ---
PROCEDURE: XR WRIST RT 2V INDICATIONS: Rheumatoid arthritis without rheumatoid factor, multiple sit TECHNIQUE: 2 views of the wrist were acquired. COMPARISON: [facility], CR, XR HAND RT 2V, 04/17/2023, 10:18. FINDINGS: Bones: No fractures or dislocations. No suspicious bony lesions. Severe arthritic changes at the 1st carpometacarpal joint with periarticular bony erosion and subluxation of the 1st metacarpal. Soft tissues: No suspicious soft tissue calcifications. Marked soft tissue swelling. IMPRESSION: 1. Severe arthritic changes with bony erosion consistent with inflammatory arthritis. 2. Marked soft tissue swelling. Dictated by: Jeremy Olsen M.D. on 04/17/2023 at 13:19 Approved by: Jeremy Olsen M.D. on 04/17/2023 at 13:20
[2023-04-17 12:32] LABS: Alanine Aminotransferase 14 IU/L (<50); Albumin 3.5 g/dL (3.5-5.0); Albumin Globulin Ratio 1.3 (1.0-2.8); Alkaline Phosphatase 113 U/L (38-126); Aspartate Aminotransferase 20 IU/L (17-59); BUN Creatinine Ratio 19.5 (6-22); Bilirubin Total 0.6 mg/dL (0.2-1.3); Blood Urea Nitrogen 15 mg/dL (9-20); Calcium 8.3 mg/dL (8.4-10.2); Carbon Dioxide 27 mmol/L (22-32); Chloride 101 mmol/L (98-107); Estimated Glomerular Filt Rate > 60 mL/min (>60); Globulin 2.7 g/dL (1.7-4.1); Glucose 124 mg/dL (80-110); HEMOLYSIS < 15 (0-50); Sodium 135 mmol/L (137-145); Total Protein 6.2 g/dL (6.3-8.2)
[2023-04-17 12:38] LABS: Add Manual Diff / Slide Review NO; Basophils Absolute Auto 0 /uL (0-100); Basophils Percent Auto 0.6 % (0-2); Eosinophils Absolute Auto 0 /uL (0-450); Eosinophils Percent Auto 0.5 % (2-4); Hematocrit 47.9 % (41-53); Hemoglobin 16.5 g/dL (13.5-17.5); Lymphocytes Absolute Auto 600 /uL (1100-4500); Lymphocytes Percent Auto 8.4 % (25-40); Mean Corpuscular HGB Conc 34.4 % (30-36); Mean Corpuscular Hemoglobin 32.5 PG (26-34); Mean Corpuscular Volume 94.4 fL (80-100); Monocytes Absolute Auto 300 /uL (0-900); Monocytes Percent Auto 4.3 % (3-14); Neutrophils Absolute Auto 5600 /uL (1500-7000); Neutrophils Percent Auto 86.2 % (50-75); Platelet Count 259 X10^3/uL (150-400); Red Blood Cell Count 5.08 X10^6/uL (4.5-5.9); Red Cell Distribution Width 13.6 % (11.6-14.8); White Blood Cell Count 6.5 X10^3/uL (4.5-11.0)
== END ==
PROVIDERS: PCP Nurse Practitioner; Referring Provider Internal Medicine Rheumatology; Visit Provider Internal Medicine Rheumatology
DX: M06.09 Rheumatoid arthritis without rheumatoid factor, multiple sites (principal); M79.89 Other specified soft tissue disorders; Z79.899 Other long term (current) drug therapy
CPT/HCPCS: 36415; 73100; 73120; 80053; 85025

== ENCOUNTER → 2023-10-13 16:07 | Outpatient (CLI) | payer MEDICARE, OTHER, SELFPAY ==
[2023-10-13 17:15] LABS: Add Manual Diff / Slide Review NO; Basophils Absolute Auto 0 /uL (0-100); Basophils Percent Auto 0.8 % (0-2); Eosinophils Absolute Auto 100 /uL (0-450); Eosinophils Percent Auto 2.2 % (2-4); Hematocrit 46.8 % (41-53); Lymphocytes Absolute Auto 1200 /uL (1100-4500); Lymphocytes Percent Auto 19.6 % (25-40); Mean Corpuscular HGB Conc 34.1 % (30-36); Mean Corpuscular Hemoglobin 32.5 PG (26-34); Mean Corpuscular Volume 95.1 fL (80-100); Monocytes Absolute Auto 600 /uL (0-900); Monocytes Percent Auto 9.9 % (3-14); Neutrophils Absolute Auto 4000 /uL (1500-7000); Neutrophils Percent Auto 67.5 % (50-75); Platelet Count 242 X10^3/uL (150-400); Red Blood Cell Count 4.92 X10^6/uL (4.5-5.9); Red Cell Distribution Width 13.4 % (11.6-14.8); White Blood Cell Count 5.9 X10^3/uL (4.5-11.0)
[2023-10-13 17:34] LABS: HEMOLYSIS < 15 (0-50); Potassium 4.4 mmol/L (3.4-5.1)
[2023-10-13 17:35] LABS: Alanine Aminotransferase 16 IU/L (<50); Albumin 3.7 g/dL (3.5-5.0); Albumin Globulin Ratio 1.3 (1.0-2.8); Alkaline Phosphatase 110 U/L (38-126); Aspartate Aminotransferase 23 IU/L (17-59); BUN Creatinine Ratio 18.9 (6-22); Bilirubin Total 0.9 mg/dL (0.2-1.3); Blood Urea Nitrogen 14 mg/dL (9-20); Calcium 8.6 mg/dL (8.4-10.2); Carbon Dioxide 28 mmol/L (22-32); Chloride 100 mmol/L (98-107); Estimated Glomerular Filt Rate > 60 mL/min (>60); Globulin 2.9 g/dL (1.7-4.1); Glucose 121 mg/dL (80-110); Sodium 136 mmol/L (137-145); Total Protein 6.6 g/dL (6.3-8.2)
[2023-10-13 17:51] LABS: Free T3, Triiodothyronine Free 3.01 pg/mL (2.77-5.27); Free T4, Direct Thyroxine 0.97 ng/dL (0.78-2.19)
[2023-10-13 18:04] LABS: Thyroid Stimulating Hormone 3.52 uIU/mL (0.47-4.68)
== END ==
PROVIDERS: PCP Nurse Practitioner; Referring Provider Nurse Practitioner; Visit Provider Nurse Practitioner
DX: R53.83 Other fatigue (principal); R41.0 Disorientation, unspecified; R63.4 Abnormal weight loss
CPT/HCPCS: 36415; 80053; 84439; 84443; 84481; 85025

== ENCOUNTER → 2023-10-14 08:36 | Outpatient (CLI) | payer MEDICARE, OTHER, SELFPAY ==
--- NOTE | 2023-10-14 08:38 | DI.CT.S_ITS ---
PROCEDURE: CT ANGIO HEAD AND NECK INDICATIONS: recent fall with head injury TECHNIQUE: In this patient, noncontrast images were obtained through the head. After the administration of intravenous contrast, 1 mm thick sections acquired from the aortic arch through the [place]. 3-dimensional [id number] (MIP) and/or volume rendering reformats were acquired of the central intracranial vasculature and neck separately. For radiation dose reduction, the following was used: automated exposure control, adjustment of mA and/or kV according to patient size. COMPARISON: [facility], CT, CT ANGIO HEAD, 02/06/2022, 9:02. FINDINGS: Image quality: Mild streak artifact can be seen through the skull base. There is streak artifact seen through the level of the shoulders. BRAIN: CSF spaces: Ventricles are normal in size and shape. Basal cisterns are patent. No extra-axial fluid collections. Brain: No significant abnormality of the brain can be seen. Skull and face: Calvarium and facial bones appear intact, without suspicious lesions. No calvarial fracture is seen. Orbits appear normal. Sinuses: Sinuses and mastoids are clear. S shaped nasal septal deviation is noted. HEAD CT ANGIOGRAPHY: Anterior circulation: Intracranial internal carotid arteries demonstrate atherosclerotic irregularity and calcification, with approximately 50% narrowing seen on each side.. The flow within the paired anterior cerebral arteries is normal and symmetric. The flow within the middle cerebral arteries is normal and symmetric. The anterior communicating artery is seen. No aneurysms are seen. Posterior circulation: Visualized portions of the vertebral arteries demonstrate normal caliber, and join to form a normal appearing basilar artery. Flow within the posterior cerebral arteries is normal and symmetric. No aneurysms are seen. NECK CT ANGIOGRAPHY: Carotid system: The great vessels demonstrate a conventional anatomy as they arise from the aortic arch. The origins of the common carotid arteries appear patent. The common carotid arteries demonstrate normal caliber and courses. The bifurcation regions demonstrate atherosclerotic irregularity and calcification, yet without a hemodynamically significant stenosis. The internal carotid arteries demonstrate normal calibers and courses. Posterior circulation: The origins of the vertebral arteries both appear widely patent. The more superior extracranial portions of both vertebral arteries also demonstrate normal courses and calibers. The left vertebral artery is dominant to the right. Soft tissues: Visualized neck soft tissues demonstrate no suspicious abnormalities. Emphysematous changes can be seen at the lung apices. Bones: No suspicious bony lesions. Visualized cervical spine appears normally aligned. No cervical spine fracture is seen. Mild lower cervical spine degenerative change can be seen. IMPRESSION: No acute intracranial hemorrhage is seen. No acute intracranial process is seen. Negative for cervical spine fracture. No significant intracranial arterial abnormality is seen. No significant abnormality is seen within the arteries of the neck. Additional findings: Mild cervical spine degenerative change Emphysematous change Any quantitative measurements of stenosis were performed using NASCET criteria. Dictated by: Jose Dickey M.D. on 10/14/2023 at 9:17 Approved by: Jose Dickey M.D. on 10/14/2023 at 9:21
--- NOTE | 2023-10-14 08:43 | DI.CT.S_ITS ---
PROCEDURE: CT LUNG LOW DOSE SCREENING INDICATIONS: tobacco use disorder TECHNIQUE: Noncontrast 2.0-2.5 mm thick sections acquired from the pulmonary apices to the posterior costophrenic angles. 7 mm thick axial MIP, and 5 mm coronal and sagittal reformats were then acquired. For radiation dose reduction, the following was used: automated exposure control, adjustment of mA and/or kV according to patient size. COMPARISON: None. FINDINGS: Image quality: Diagnostic. Lower Neck: No enlarged lymph nodes. Thyroid: No thyroid nodules which require sonographic follow up, per consensus guidelines. Axillae: No enlarged lymph nodes. Chest Wall: Unremarkable. Bones: Degenerative disc disease without acute or suspicious osseous abnormality. Lungs and Pleura: No pneumothorax or pleural effusions. Mild centrilobular emphysematous changes. Right lower lobe calcified granuloma (3/236) Scattered pulmonary micro nodules, for example: - Left upper lobe 3 millimeter nodule (3/55, MIP image 29) -left upper lobe 2 millimeter nodule (3/135, MIP image 69) Heart: Heart size is normal. No pericardial effusion. Moderate coronary artery calcifications. Thoracic Vessels: The aorta and pulmonary arteries demonstrate normal size. Aortic arch calcifications. Mediastinum and Anna: No enlarged lymph nodes. Esophagus: No wall thickening. No hiatal hernia. Upper Abdomen: Visualized upper abdomen solid organs and bowel loops appear normal. IMPRESSION: Mild centrilobular emphysema. Scattered pulmonary micro nodules. LUNG-RADS 2; continued annual screening, if eligible. Clinically Significant Non-pulmonary Findings: Moderate coronary artery calcifications. Consider cardiology referral. Approved by: Kamila Basilio M.D. on 10/14/2023 at 10:29
== END ==
PROVIDERS: PCP Nurse Practitioner; Referring Provider Nurse Practitioner; Visit Provider Nurse Practitioner
DX: Z12.2 Encounter for screening for malignant neoplasm of respiratory organs (principal); S09.90XA Unspecified injury of head, initial encounter; F17.210 Nicotine dependence, cigarettes, uncomplicated; R42 Dizziness and giddiness; M47.812 Spondylosis without myelopathy or radiculopathy, cervical region; J43.2 Centrilobular emphysema; R91.8 Other nonspecific abnormal finding of lung field; I25.10 Atherosclerotic heart disease of native coronary artery without angina pectoris; W19.XXXA Unspecified fall, initial encounter
CPT/HCPCS: 70496; 70498; 71271

== ENCOUNTER → 2023-11-19 09:27 | Outpatient (CLI) | payer MEDICARE, OTHER, SELFPAY | PROVIDERS: PCP Nurse Practitioner; Referring Provider Nurse Practitioner; Visit Provider Nurse Practitioner | DX: R55 Syncope and collapse (principal) | CPT/HCPCS: 93246 ==

== ENCOUNTER → 2023-11-19 09:55 | Outpatient (CLI) | payer MEDICARE, OTHER, SELFPAY ==
[2023-11-19 10:43] LABS: Hemoglobin A1C% w Est Avg Glu 5.3 % (4.0-6.0)
[2023-11-19 10:59] LABS: Cholesterol 172 mg/dL (140-199); HDL Cholesterol 52 mg/dL (40-60); LDL Cholesterol Calculated 108 mg/dL (<100); Triglycerides 62 mg/dL (35-150)
[2023-11-26 09:22] LABS: Testosterone Free 14.47 ng/dL (5.00-21.00); Testosterone Total 535.9 ng/dL (264.0-916.0)
== END ==
PROVIDERS: PCP Nurse Practitioner; Referring Provider Specialist; Visit Provider Specialist
DX: E78.5 Hyperlipidemia, unspecified (principal); R73.01 Impaired fasting glucose; E29.1 Testicular hypofunction; R55 Syncope and collapse
CPT/HCPCS: 36415; 80061; 83036; 84153; 84402; 84403; 93246

== ENCOUNTER → 2023-12-03 06:46 | Outpatient (CLI) | payer MEDICARE, OTHER, SELFPAY ==
--- NOTE | 2023-12-03 06:47 | DI.ECHO.S_ITS ---
[facility] +---------+ : : [address] [place] : : : : [id number] : : : : Phone: [phone]+ Echocardiogram Report + + :Name: JOHN ANDERSON Study Date: 12/03/2023 Height: 70 in : :[facility] ReadingLocation: Weight: 135 lb : : Gender: Male BSA: 1.8 m2 : :: 1950 Age: 73 yrs BP: 151/81 mmHg: :Reason For Study: HYPERTENSION : :Ordering Physician: LISA, : :ZORA Performed By: Malou Botello : :Referring: ZORA GONZALEZ : + + Interpretation Summary The ejection fraction is estimated to be 60-65%. Diastolic parameters suggest probable normal left ventricular diastolic function and normal filling pressures. The right ventricle is normal in size and function. No significant valvular abnormalities. Pulmonary artery pressures cannot be estimated because of the lack of a measurable TR jet velocity but the IVC suggests a CVP of around 3 mmHg. Procedure: A two-dimensional transthoracic echocardiogram with color flow and Doppler was performed. The study quality was technically adequate. There is no prior echocardiogram noted for this patient. The patient was in sinus rhythm with heart rates between 50-61 bpm during the exam. Left Ventricle: The left ventricle is normal in size and wall thickness. The ejection fraction is estimated to be 60-65%. Diastolic parameters suggest probable normal left ventricular diastolic function and normal filling pressures. Right Ventricle: The right ventricle is normal in size and function. Atria: The left atrial size is normal. Right atrial size is normal. There is no Doppler evidence for an interatrial shunt. Mitral Valve: The mitral valve is normal in structure and function. There is trace mitral regurgitation. Aortic Valve: The aortic valve is trileaflet. The aortic valve opens well. There is no aortic valve stenosis. No aortic regurgitation is present. Tricuspid Valve: The tricuspid valve is normal in structure and function. There is trace tricuspid regurgitation. Pulmonary artery pressures cannot be estimated because of the lack of a measurable TR jet velocity but the IVC suggests a CVP of around 3 mmHg. Pulmonic Valve: The pulmonic valve leaflets are thin and pliable; valve motion is normal. There is mild pulmonic regurgitation. Great Vessels: The aortic root is normal size. The dimensions of the ascending aorta are normal. The IVC is of normal diameter and collapses greater than 50% with a sniff. This suggests a low right atrial pressure of 3 mm Hg. Pericardium/ Pleura There is no pericardial effusion. There is no pleural effusion. MMode/2D Measurements & Calculations LVIDd: 5.2 cm LVOT diam: 2.0 cm LVIDs: 3.4 cm Ao root diam: 3.3 cm FS: 34.4 % Ao Arch Diam (Prox Trans): 2.4 cm EPSS: 0.54 cm IVSd: 0.70 cm LVPWd: 0.76 cm LV mars. diameter/BSA (cm/m^2): 2.9 LV sys. diameter/BSA (cm/m^2): 1.9 LA A2 area: 17.5 cm2 RA long axis: 4.4 cm LA A4 area: 17.8 cm2 RA area: 13.3 cm2 LA length (vol): 5.1 cm RA vol: 34.1 ml LA vol: 51.5 ml RA : 19.3 ml/m2 LA vol index: 29.2 ml/m2 IVC diam: 1.8 cm RVD1 (basal): 3.6 cm RVD2 (mid): 3.1 cm TAPSE: 1.8 cm Doppler Measurements & Calculations Ao V2 max: 168.8 cm/sec LVOT Max Daniel: 97.0 cm/sec Ao V2 mean: 115.7 cm/sec LV V1 max P.8 mmHg Ao max P.4 mmHg LV V1 VTI: 20.7 cm Ao mean P.0 mmHg PAUL(I,D): 1.8 cm2 Ao V2 VTI: 35.2 cm PAUL(V,D): 1.7 cm2 sev ratio: 0.59 PAUL indexed to BSA (cm^2/m^2): 1.0 MV E max daniel: 78.1 cm/sec TR max daniel: 187.5 cm/sec MV A max daniel: 64.2 cm/sec TR max P.1 mmHg MV E/A: 1.2 PA V2 max: 81.0 cm/sec Med Peak E' Daniel: 10.3 cm/sec PA V2 mean: 59.6 cm/sec E/E' med: 7.6 PA mean P.5 mmHg Lat Peak E' Daniel: 9.8 cm/sec PA pr(Accel): 25.9 mmHg E/E' lat: 8.0 E/e' average: 7.8 MV dec time: 0.25 sec [facility] 62.8 ml Reading Physician:12:28 PM
== END ==
LOC: ECHO 06:46
PROVIDERS: PCP Nurse Practitioner; Referring Provider Nurse Practitioner; Visit Provider Nurse Practitioner
DX: I37.1 Nonrheumatic pulmonary valve insufficiency (principal); I10 Essential (primary) hypertension
CPT/HCPCS: 93306

== ENCOUNTER 2023-12-08 13:35 | Day surgery (SDC) | payer MEDICARE, OTHER, SELFPAY ==
[2023-12-08 13:53] VITALS: BP 180/96; PULSE 92; RESP 18; TEMP 36.8; O2SAT 99; BMI 19.9
[2023-12-08] MEDS: LACTATED RINGERS 1,000 ML 42 ML IV (14:08)
--- NOTE | 2023-12-08 14:24 | PM.HP.1 ---
History of Present Illness History of Present Illness Date Patient Seen: 12/08/23 Time Patient Seen: 14:24 Chief complaint: Screening Colonoscopy Narrative: 73-year-old man here for screening colonoscopy. Last colonoscopy 20 years ago normal. No family history of intestinal malignancy. No abdominal concerns today. [facility] Medical History Elevated fasting glucose Atherosclerosis Non compliance w medication regimen Intolerance to BiPAP/CPAP LEONARDO (obstructive sleep apnea) Methotrexate, senior care, current use Hypogonadism in male Thyroid nodule greater than or equal to 1 cm in diameter incidentally noted on imaging study Rheumatoid arthritis Tobacco use disorder, continuous Arthritis Anemia Poor appetite COVID-19 vaccine series completed COVID-19 Left hydrocele Epididymal cyst Left inguinal hernia Fracture of left olecranon process Open wound of left elbow Right inguinal hernia Other senior care (current) drug therapy Hyperlipidemia Traumatic arthropathy, left elbow Atypical chest pain Sleep apnea (~2015) Depression (~2015) Gout (~1979) Mumps Measles Low BMI Tobacco dependency Liver spots Epididymitis, left Unilateral inguinal hernia without obstruction or gangrene (08/22/16) Pain of right heel (08/22/16) Pain in both forearms (08/22/16) Surgical History H/O hernia repair (06/11/21) History of surgery (2018) Family History Mother Lupus Fibromyalgia Sister Age: 78 Bladder cancer Father Cancer Sister History of heart disease Social History marital status: household members: spouse Previous occupational history: retired leisure activities: exercise Smoking Status: Current some day smoker Tobacco: How many years used: 10 alcohol intake: current caffeine: Yes Type(s) of exercise: other frequency: daily Meds Home Medications and Allergies Home Medications Medication Instructions Recorded Confirmed Type testosterone cypionate 100 mg/mL 200 mg (2 mL) IM Q2W #2 mL 09/29/23 12/08/23 Rx intramuscular oil (Depo-Testosterone) duloxetine 20 mg capsule,delayed 40 mg (2 x 20 mg) PO BID #270 caps 11/11/23 12/08/23 Rx release lisinopril 40 mg tablet 40 mg PO DAILY #90 tabs 11/11/23 12/08/23 Rx methotrexate sodium 10 mg tablet 20 mg (2 x 10 mg) PO QWEEK #1 tab 11/13/23 12/08/23 Rx Allergies Allergy/AdvReac Type Severity Reaction Status Date / Time No Known Drug Allergies Allergy Verified 12/08/23 13:49 Exam Vital Signs (past 8 hours): - 12/08/23 13:53 Temperature 98.2 F Pulse Rate 92 H Respiratory Rate 18 Blood Pressure 180/96 H Pulse Oximetry 99 Oxygen Delivery Method Room Air Oxygen Delivery Method Room Air Narrative Exam Narrative: General adult man alert oriented no acute distress Chest nonlabored respiration Extremities warm well perfused Assessment & Plan Assessment & Plan narrative: The patient requires colorectal screening and colonoscopy is recommended. Technical details were discussed. Risks, benefits, alternatives explained. Risks including but not limited to myocardial infarction, aspiration, bleeding, pain, missed lesion, incomplete examination, need for further radiographic studies, colonic perforation, and need for major abdominal surgery were discussed. All questions were answered to their satisfaction, and they are in agreement with this plan.
--- NOTE | 2023-12-08 14:29 | P.OP.COLON_ITS ---
Operative Date/Time/Diagnoses Date of procedure: 12/08/23 Time of procedure: 14:29 Pre-op diagnosis: Colorectal screening Post-op diagnosis: same Procedure & Clinicians Study performed: Screening colonoscopy Same procedure as scheduled: Yes Indications: Colorectal screening Surgeon: Xander Wade Procedure Notes Procedure in detail: The history and physical was performed/updated and the patient is ASA class is 2. The procedure was discussed in detail with the patient. Potential risks complications including infection, bleeding, missed diagnosis, perforation, need for surgery, and were explained. Their questions were answered and informed consent was obtained. Patient was brought to the procedure room and placed standard monitoring equipment. The patient's vital signs were monitored continuously throughout the entire procedure. Prior to starting time-out was performed. The patient was placed in the left lateral recumbent position. Procedural sedation was administered by anesthesia. Examination began with a thorough inspection of the perianal area there was no evidence of fissures, fistulae, external hemorrhoids or cutaneous malignancy. The colonoscopy scope was then placed into the anal canal and was advanced to the cecum, which was identified by the ileocecal valve, the appendiceal orifice and the confluence of the taenia. The scope was then slowly withdrawn examining colon thoroughly in all directions, irrigating it of any residual stool. The scope was retroflexed within the rectum The patient tolerated the procedure well. They will be discharged once criteria are met. The prep was of fair quality. The withdrawl time was 7 minutes. FINDINGS * Descending colon-extensive diverticulosis * Internal hemorrhoids * No masses or polyps. Specimen(s): none sent Impression: Diverticulosis Post-procedure Recommendations: High fiber diet Plan for aftercare: No further colonoscopy unless symptomatic Disposition: same day surgery
[2023-12-08 14:53] VITALS: BP 106/69; PULSE 72; RESP 17; TEMP 36.6; O2SAT 97
[2023-12-08 14:58] VITALS: BP 101/66; PULSE 75; RESP 20; O2SAT 98
[2023-12-08 15:03] VITALS: BP 117/77; PULSE 68; RESP 19; O2SAT 99
[2023-12-08 15:09] VITALS: BP 135/86; PULSE 62; RESP 17; TEMP 36.5; O2SAT 96
== END 2023-12-08 15:32 | disposition home or self-care (01) ==
PROVIDERS: PCP Nurse Practitioner; Referring Provider Surgery; Visit Provider Surgery
PROC: 0DJD8ZZ Inspection of Lower Intestinal Tract, Via Natural or Artificial Opening Endoscopic (ICD-10-PCS; CPT 45378; principal; 2023-12-08 14:15)
DX: Z12.11 Encounter for screening for malignant neoplasm of colon (principal); K57.30 Diverticulosis of large intestine without perforation or abscess without bleeding; K64.8 Other hemorrhoids
CPT/HCPCS: G0121; J2704

== ENCOUNTER → 2023-12-26 10:36 | Outpatient (CLI) | payer MEDICARE, OTHER, SELFPAY ==
[2023-12-26 14:39] LABS: Prostate Specific Antigen 0.814 ng/mL (0.10-4.00)
== END ==
LOC: LAB 10:38
PROVIDERS: PCP Nurse Practitioner; Referring Provider Specialist; Visit Provider Specialist
DX: N40.1 Benign prostatic hyperplasia with lower urinary tract symptoms (principal); N13.8 Other obstructive and reflux uropathy
CPT/HCPCS: 36415; 84153

== ENCOUNTER → 2024-01-27 08:38 | Outpatient (CLI) | payer MEDICARE, OTHER, SELFPAY ==
[2024-01-27 10:31] LABS: Prostate Specific Antigen 0.842 ng/mL (0.10-4.00)
== END ==
PROVIDERS: PCP Nurse Practitioner; Referring Provider Specialist; Visit Provider Specialist
DX: N40.1 Benign prostatic hyperplasia with lower urinary tract symptoms (principal); N13.8 Other obstructive and reflux uropathy; R93.89 Abnormal findings on diagnostic imaging of other specified body structures
CPT/HCPCS: 36415; 51798; 81002; 84153; 99214

== ENCOUNTER → 2024-03-03 15:14 | Outpatient (CLI) | payer MEDICARE, OTHER, SELFPAY ==
--- NOTE | 2024-03-03 15:15 | DI.NM.S_ITS ---
PROCEDURE: NM EXERCISE TREADMILL NON NUC COMPARISON: None INDICATIONS: Angina equivalent FINDINGS: Rest ECG sinus rhythm, T wave inversions leads I and aVL. Resting blood pressure 140/80. Yan protocol 6:37, maximum heart rate 124 bpm (84% peak predicted), maximum blood pressure 200/100, 7.0 METS, JL -2%. Exercise ECG sinus tachycardia, no ST segment changes, no arrhythmia. The patient did not complain of exercise-induced chest discomfort however did report leg fatigue and pain at peak exercise. IMPRESSION: Low risk study. No evidence of exercise-induced ischemia or arrhythmia. Normal hemodynamic response. Exercise-induced leg pain and fatigue reported. Fair exercise capacity. Dictated by: Keshia Moran D.O. on 03/03/2024 at 16:32 Approved by: Keshia Moran D.O. on 03/03/2024 at 16:41
== END ==
PROVIDERS: PCP Nurse Practitioner; Referring Provider Internal Medicine; Visit Provider Internal Medicine
DX: I20.89 Other forms of angina pectoris (principal)
CPT/HCPCS: 93017

== ENCOUNTER → 2024-03-24 13:23 | Outpatient (CLI) | payer MEDICARE, OTHER, SELFPAY | PROVIDERS: PCP Nurse Practitioner; Visit Provider Family Medicine | DX: S51.009A Unspecified open wound of unspecified elbow, initial encounter (principal) | CPT/HCPCS: 87070; 87075; 87205 ==

== ENCOUNTER → 2024-04-02 12:46 | Outpatient (CLI) | payer MEDICARE, OTHER, SELFPAY ==
[2024-04-02 14:11] LABS: Influenza A - CEPHEID Flu A NEGATIVE (NEGATIVE); Influenza B - CEPHEID Flu B NEGATIVE (NEGATIVE); Respiratory Syncytial Virus Negative (Negative)
[2024-04-02 14:13] LABS: COVID-19 CEPHEID 4-PLEX PCR Negative (Negative)
== END ==
PROVIDERS: PCP Nurse Practitioner; Visit Provider Nurse Practitioner Family
DX: J02.9 Acute pharyngitis, unspecified (principal)
CPT/HCPCS: 0241U; 87070

== ENCOUNTER → 2024-06-27 10:48 | Outpatient (CLI) | payer MEDICARE, OTHER, SELFPAY ==
[2024-06-27 12:11] LABS: Add Manual Diff / Slide Review NO; Basophils Absolute Auto 100 /uL (0-100); Basophils Percent Auto 1.5 % (0-2); Eosinophils Absolute Auto 200 /uL (0-450); Eosinophils Percent Auto 2.5 % (2-4); Hematocrit 47.2 % (41-53); Lymphocytes Absolute Auto 1500 /uL (1100-4500); Lymphocytes Percent Auto 23.4 % (25-40); Mean Corpuscular Hemoglobin 32.7 PG (26-34); Mean Corpuscular Volume 96.2 fL (80-100); Monocytes Absolute Auto 700 /uL (0-900); Monocytes Percent Auto 10.7 % (3-14); Neutrophils Absolute Auto 3900 /uL (1500-7000); Neutrophils Percent Auto 61.9 % (50-75); Platelet Count 257 X10^3/uL (150-400); Red Cell Distribution Width 13.9 % (11.6-14.8); White Blood Cell Count 6.2 X10^3/uL (4.5-11.0)
[2024-06-27 12:37] LABS: Alanine Aminotransferase 14 IU/L (<50); Albumin 3.6 g/dL (3.5-5.0); Albumin Globulin Ratio 1.4 (1.0-2.8); Alkaline Phosphatase 92 U/L (38-126); Aspartate Aminotransferase 22 IU/L (17-59); BUN Creatinine Ratio 17.1 (6-22); Bilirubin Total 0.7 mg/dL (0.2-1.3); Blood Urea Nitrogen 13 mg/dL (9-20); Calcium 8.7 mg/dL (8.4-10.2); Carbon Dioxide 28 mmol/L (22-32); Chloride 104 mmol/L (98-107); Estimated Glomerular Filt Rate > 60 mL/min (>60); Globulin 2.5 g/dL (1.7-4.1); Glucose 115 mg/dL (80-110); HEMOLYSIS < 15 (0-50); Potassium 4.9 mmol/L (3.4-5.1); Sodium 135 mmol/L (137-145); Total Protein 6.1 g/dL (6.3-8.2)
[2024-07-04 10:27] LABS: Percent Free Testosterone 3.08 % (1.50-4.20); Testosterone Free 77.76 ng/dL (5.00-21.00); Testosterone Total 2524.7 ng/dL (264.0-916.0)
== END ==
PROVIDERS: PCP Family Medicine; Referring Provider Family Medicine; Visit Provider Family Medicine
DX: D64.9 Anemia, unspecified (principal); F17.200 Nicotine dependence, unspecified, uncomplicated; E29.1 Testicular hypofunction; R53.83 Other fatigue; I10 Essential (primary) hypertension
CPT/HCPCS: 36415; 80053; 84402; 84403; 85025